=== PATIENT | female | born 1980 | race Two or more races ===

== ENCOUNTER 2022-09-29 13:05 | Emergency (ER) | payer OTHER, SELFPAY ==
[2022-09-29 14:21] VITALS: BP 132/97; PULSE 89; RESP 20; TEMP 36.4; O2SAT 98; BMI 34.1
--- NOTE | 2022-09-29 14:21 | ED_ITS ---
HPI - URI/Sore Throat General Chief Complaint: Upper Respiratory Symptoms Stated Complaint: covid + 3 days ago, SOB Time Seen by Provider: 09/29/22 14:31 Source: patient Mode of arrival: ambulatory Limitations: no limitations History of Present Illness HPI Narrative: Patient is a 42-year-old female who presents to emergency department complaining of cough, shortness of breath, chest pain, body aches, fatigue, headache, symptom onset 3 days ago. Reports her son was ill recentlywith similar symptoms. Today she took at home COVID-19 test today which was positive. Denies any reported past medical history. States she has been vaccinated for COVID-19. OTC cold medications not helping her symptoms Related Data Previous Rx's Medication Instructions Recorded nirmatrelvir 300 mg (150 mg See Rx Instructions PO .COMPLEX 09/29/22 x2)-ritonavir 100 mg tablet,dose #30 ea pack(EUA) (Paxlovid) Allergies Allergy/AdvReac Type Severity Reaction Status Date / Time oxycodone [OXYCODONE] Allergy Mild HIVES Unverified 06/10/20 16:36 Review of Systems Review of Systems: Constitutional: no fever. no chills. No weakness. Positive fatigue. positive body aches ENT/ Mouth: No Ear Pain, positive Nasal Congestion, no sore throat, No Rhinorrhea, No Swallowing Difficulty Skin: No rash or itching. Cardiovascular: positive chest pain. No palpitations. Respiratory: positive shortness of breath. Positive cough. No sputum production. Gastrointestinal: No nausea. No vomiting. No diarrhea. No abdominal pain. Genitourinary: No burning micturition. No urinary frequency. Neurologic: positive headache. No dizziness. No syncope. No numbness or tingling in the extremities. Musculoskeletal: No back pain. No joint pain or stiffness. Yes all other systems are reviewed and are negative PMFSH Past Medical History Attestation statement: The following information was validated with the patient. Source: old records reviewed Social History Social History Advance Directives: Yes Advance Directives Information Provided: Yes Advance Directives on File: No Physical Exam Vital Signs: Vital Signs: Last Vital Signs Temp 97.6 F 09/29/22 14:21 Pulse 89 09/29/22 14:21 Resp 20 09/29/22 14:21 BP 132/97 H 09/29/22 14:21 Pulse Ox 98 09/29/22 14:21 O2 Del Method 09/29/22 14:21 BMI result Body Mass Index 34.1 Appearance: Alert.?Oriented to person, place and time. No acute distress.?Normal affect. Eyes: Pupils equal, round and reactive to light.? ENT: TM normal bilaterally. Pharynx normal.?? Neck: Normal inspection.? Neck supple.??No cervical adenopathy CVS: Heart sounds normal. Normal heart rate and rhythm.? Pulses normal.?? Respiratory: No respiratory distress.? Lung sounds clear to auscultation bilaterally?? Abdomen: Soft and non-tender. Normoactive bowel sounds. Skin: Skin warm and dry.? Normal skin color.? ? Extremities: No lower extremity edema.? Neuro: Moves all extremities spontaneously. Sensation intact bilaterally. No motor deficits. Ambulates with normal steady gait. Medical Decision Making Medical Decision Making MDM Narrative: Patient is a 42 year old female with no past medical history, presenting for evaluation of upper respiratory symptoms. COVID-19 testing positive at home today. At this time history and physical exam not consistent with ACS/PE/pneumonia. PERC negative. chest pain reproducible t cough and deep inspiration, suggesting inflammatory costocondritis. No meningismus. Well- appearing, nontoxic, afebrile, no tachycardia or tachypnea/hypoxia. Speaking clear full sentences, ambulatory with steady gait. Reviewed Paxlovid emergency use authorization, side effects, potential complications, provided with patient information handout, and she would like treatment with Paxlovid, therefore prescription was sent to her pharmacy. Discussed conservative treatment including rest, hydration, Tylenol/ibuprofen as needed for fever and body aches, saline nasal spray, humidifier, [id number] cold medication. Advised to follow-up with primary care provider as needed, discussed reasons to return back to the emergency department. All questions were answered. Patient discharged home in stable condition. Provided with a return to work note. Tests considered The following testing was considered but not selected: chest x-ray considered, H&P not consistent with pneumona, chest XR Deferred Prescription Management I considered prescription management with: Antiviral Discharge Plan Discharge Clinical Impression: COVID-19 Patient Disposition: Home, Self-Care Instructions: COVID-19 (Coronavirus Disease 2019) (ED) Additional Instructions: We discussed potential side effects and complications from Paxlovid, you accepted treatment, and prescription was sent to the pharmacy. Be sure to rest, stay well hydrated drinking plenty of fluids, eat small frequent meals. Tylenol/ibuprofen can be used as needed for fever/pain. [id number] cold medications may be helpful as well for symptoms. Saline nasal spray, humidifier may be helpful for nasal congestion. You may return to the emergency department with any new or worsening symptoms or concerns. Follow-up with your primary care provider as needed. Soonest end isolation date is 10/02/2021, given that your symptoms are improving and you are without a fever for 24 hours. You should continue to wear mask for 5 days after this. Prescriptions: New Paxlovid (EUA) 300 mg (150 mg x 2)-100 mg tablets,dose pack See Rx Instructions .ROUTE .COMPLEX Qty: 30 0RF Rx Instructions: take TWO 150 mg tablets of nirmatrelvir with ONE 100 mg tablet of ritonavir twice daily for 5 days Referrals: Physician,Unknown J [Primary Care Provider] - Interventions: ED Discharge Assessment Last Done: 09/29/22 14:56 Discharge Date/Time: 09/29/22 14:56
== END 2022-09-29 14:56 | disposition home or self-care (01) ==
PROVIDERS: Emergency Provider Emergency Medicine
DX: U07.1 COVID-19 (principal)
CPT/HCPCS: 99282; 99283

== ENCOUNTER 2024-04-24 23:10 | Day surgery (SDC) | payer OTHER, SELFPAY ==
--- NOTE | ~2024-04-24 | CT_ITS ---
EXAMINATION: CT ABDOMEN AND PELVIS WITHOUT CONTRAST CLINICAL INFORMATION: Right flank pain COMPARISON: None available. TECHNIQUE: Multidetector volumetric imaging was performed from the superior aspect of the liver through the pubic symphysis. Sagittal and coronal reformatted images were obtained on the technologist's workstation. This CT examination was performed using dose optimization techniques as appropriate, variously including the following: *Automated exposure control *Adjustment of mA and/or kV according to patient size (this includes techniques or standardized protocols for targeted exams where dose is matched to indication/reason for exam; i.e. extremities or head) *Use of iterative reconstruction technique DLP: 884 mGy-cm FINDINGS: LUNG BASES: The visualized lung bases are unremarkable. LIVER, GALLBLADDER, AND BILIARY TREE: The liver is normal in size, shape, and attenuation. No focal hepatic lesion or biliary ductal dilatation is identified on this noncontrast exam. Cholelithiasis is noted. Gallbladder appears somewhat contracted, with limited evaluation for possible wall thickening. PANCREAS: No convincing peripancreatic inflammation, with suboptimal assessment due to artifact. SPLEEN: Unremarkable. ADRENAL GLANDS: Unremarkable. KIDNEYS AND URETERS: No hydronephrosis or obstructing calculus bilaterally. Suspected left renal sinus cyst; no follow-up recommended. BLADDER: Mildly distended and grossly unremarkable. GASTROINTESTINAL TRACT: No evidence of bowel obstruction or significant wall thickening. The appendix is unremarkable. No free fluid or free air is seen. ABDOMINAL WALL: No significant hernia is appreciated. LYMPH NODES: Normal. VASCULAR: Unremarkable. PELVIC VISCERA: Left adnexal cyst measures up to 2.9 cm. Findings are overwhelmingly likely to represent a normal ovarian follicle. No followup imaging recommended. IUD is present in the uterus. OSSEOUS STRUCTURES: Scattered degenerative changes in the spine. CT/CT abdomen pelvis wo IV con IMPRESSION: 1. No hydronephrosis or obstructing calculus. 2. Cholelithiasis. Gallbladder appears somewhat contracted, with limited evaluation for possible wall thickening. If there is clinical concern for cholecystitis, this would be better assessed with ultrasound.
--- NOTE | ~2024-04-24 | US_ITS ---
EXAMINATION: US ABDOMEN LIMITED CLINICAL INFORMATION: Right upper quadrant pain. COMPARISON: CT from the same day TECHNIQUE: Real-time imaging of the gallbladder and common bile duct. FINDINGS: GALLBLADDER: Gallbladder is physiologically distended. Shadowing gallstone is identified measuring 4.1 x 2.1 x 2.6 cm. Gallbladder wall thickness is at the upper limits of normal. Right upper quadrant tenderness was reported during the exam. COMMON BILE DUCT: Normal in caliber measuring 0.4 cm in diameter. US/US abdomen limited IMPRESSION: Cholelithiasis, without additional specific findings of cholecystitis, though right upper quadrant tenderness was reported during the exam. If warranted, evaluation with nuclear medicine hepatobiliary scan may be performed if there remains clinical concern for cholecystitis.
[2024-04-24 23:42] VITALS: BP 135/86; PULSE 103; RESP 18; TEMP 36.9; O2SAT 96; BMI 39.8
[2024-04-25] VITALS (18 sets, daily range): BP systolic 114–155; BP diastolic 68–89; PULSE 53–96; RESP 15–20; TEMP 36.1–36.7; O2SAT 91–99
[2024-04-25 00:01] LABS: MANUAL DIFF FLAG NO
[2024-04-25 00:03] LABS: Basophils Percent Auto 0.3 % (0-2); Eosinophils Absolute Auto 0.1 X10*3/uL (0.0-0.4); Eosinophils Percent Auto 0.5 % (0-4); Hematocrit 39.2 % (37.0-47.0); Hemoglobin 12.6 g/dl (12.0-16.0); Imm Gran Abs Auto 0.06 X10*3/uL (0.00-0.03); Imm Gran Pct Auto 0.5 % (0.0-0.4); Lymphocytes Absolute Auto 3.7 X10*3/uL (1.2-4.9); Lymphocytes Percent Auto 31.8 % (20-40); Mean Corpuscular HGB Conc 32.1 g/dl (31.0-35.0); Mean Corpuscular Hemoglobin 23.1 pg (27.0-33.0); Mean Corpuscular Volume 71.9 fL (80.0-98.0); Mean Platelet Volume 8.9 fL (9.4-12.3); Monocytes Absolute Auto 0.9 X10*3/uL (0.1-1.2); Monocytes Percent Auto 7.6 % (2-11); Neutrophils Absolute Auto 6.9 x10*3/uL (2.0-8.3); Neutrophils Percent Auto 59.3 % (45-73); Platelet Count 277 X10*3/uL (160-400); Red Blood Count 5.45 X10*6/uL (4.20-5.50); Red Cell Distribution Width 14.7 % (11.0-16.0); White Blood Count 11.7 X10*3/uL (4.8-10.8)
[2024-04-25 00:04] LABS: Appearance Urine Cloudy; Color Urine Dark Yellow; Glucose Urine UA Negative (Negative); Leukocyte Esterase Urine Moderate (2+) (Negative); Nitrite Urine Negative (Negative); PH 5.5 (5.0-9.0); Specific Gravity - Urine >= 1.030 (1.005-1.025); UMIC TRIGGER UACC YES; Urine Blood Moderate (2+) (Negative); Urine Ketones Trace mg/dL (Negative); Urine Protein 30 (1+) mg/dL (Neg-Trace)
[2024-04-25 00:06] LABS: UPreg QC Valid YES; Urine Pregnancy NEGATIVE (NEGATIVE)
--- NOTE | 2024-04-25 00:08 | ED.FEMALEGU ---
HPI - Female Genitourinary General Chief complaint: Urogenital-Female Stated complaint: nausea, sharp pain, UTI Time Seen by Provider: 04/25/24 00:06 Source: patient Mode of arrival: ambulatory Limitations: no limitations History of Present Illness ED Provider: REGIS TRUJILLO Narrative: 43 yo female with PMH of asthma, migraines, kidney stones here with c/o R flank pain urgency and dysuria x 1 week tried pyridium with some relief but then symptoms became very severe today. She has been trying to manage at home due to significant life stressors. She has no fevers. Feels nauseated. Has been using the bathroom so much that she barely makes it there. She has pain to the R flank and R groin at this point. MD elicited complaint: dysuria and other (flank pain) Pertinent past history: other (kidney stones) Onset (ago): week(s) (1) Location of symptoms: flank Severity: severe Quality of pain: sharp Consistency: intermittent Vaginal discharge: none Vaginal bleeding: none Urinary symptoms: Dysuria, Urgency, Frequency, Difficulty Urinating and Flank Pain Exacerbating factors: urination Relieving factors: none Treatment prior to arrival: OTC urinary analgesics Related Data Previous Rx's ?Medication ?Instructions ?Recorded nirmatrelvir 300 mg (150 mg See Rx Instructions PO .COMPLEX 09/29/22 x2)-ritonavir 100 mg tablet,dose #30 ea pack (Paxlovid) Allergies Allergy/AdvReac Type Severity Reaction Status Date / Time oxycodone [OXYCODONE] Allergy Mild HIVES Verified 04/24/24 23:44 Review of Systems Review of Systems: Constitutional : No Fever, No Chills ENT/Mouth : No sore throat Eyes: No Eye Pain, No Swelling, No Redness Cardiovascular : No Chest Pain, No SOB Respiratory : No Cough, No Sputum, No Wheezing Gastrointestinal : positive Nausea, no Vomiting, No Diarrhea, positive abdominal pain Genitourinary : positive Dysuria, positive urinary frequency, no Hematuria, positive Flank Pain, positive hesitancy Musculoskeletal : No joint pain, No Myalgias Skin : No Skin Lesions, No rash Neuro : No Weakness, No Numbness, No Headache Psych : No Anxiety/Panic, No Depression Heme/Lymph: No Bruising, No Lymphadenopathy Endocrine : No Polyuria, No Polydipsia All other systems reviewed and are negative [facility] Past Medical History Attestation statement: The following information was validated with the patient. Source: old records reviewed Medical History Kidney stone Social History Social History (Updated 04/25/24 @ 00:36 by Gema Bustillo DO) Patient Tobacco Use Status: Tobacco use Unknown Smoked in Last 30 Days: No Use of substances other than those prescribed or required for medical reasons: No Advance Directives: No Advance Directives Information Provided: Yes Do you have a plan to hurt others: No Plan Patient : No Physical Exam Vital Signs: Vital Signs: Last Vital Signs Temp 98.5 F 04/24/24 23:42 Pulse 103 H 04/24/24 23:42 Resp 18 04/24/24 23:42 BP 135/86 04/24/24 23:42 Pulse Ox 96 04/24/24 23:42 O2 Del Method Room Air 04/24/24 23:42 BMI result Body Mass Index 39.8 Appearance: Alert. Oriented X3. No acute distress. Eyes: Pupils equal, round and reactive to light. ENT: Pharynx normal. Neck: Normal inspection. Neck supple. CVS: Normal heart rate and rhythm. Pulses normal. Respiratory: No respiratory distress. Breath sounds normal. Abdomen: Soft and mild R sided CVA ttp no rebound or guarding , has moderate RUQ pain and + clarke's sign Skin: Skin warm and dry. Normal skin color. Normal skin turgor. Extremities: No lower extremity edema. No calf ttp Neuro: Oriented X 3. No motor deficit. No sensory deficit. Medications Administered Discontinued Medications Generic Name Dose Route Start Last Admin Trade Name Fior PRN Reason Stop Dose Admin Sodium Chloride 1,000 mls @ 999 mls/hr 04/25/24 00:16 04/25/24 01:53 Ns IV 04/25/24 01:16 Infused .Q1H1M ONE Infusion Ketorolac Tromethamine 15 mg 04/25/24 00:16 04/25/24 00:34 Ketorolac Tromethamine 15 Mg/Ml Vial IVPUSH 04/25/24 00:17 15 mg ONCE ONE Administration Lorazepam 1 mg 04/25/24 03:01 04/25/24 03:33 Lorazepam 2 Mg/Ml Vial IVPUSH 04/25/24 03:02 1 mg STAT STA Administration Ondansetron HCl 4 mg 04/25/24 00:16 04/25/24 00:34 Ondansetron Hcl 4 Mg/2 Ml Vial IVPUSH 04/25/24 00:17 4 mg ONCE ONE Administration Medical Decision Making Medical Decision Making [facility] Narrative: 43 yo female with PMH of asthma, migraines, kidney stones here with c/o R flank pain/R side pain and dysuria at this time will need basic labs, UA, CT scan for renal colic, IVF zofran, toradol for pain. Could be renal colic, colitis, UTI, gallbladder disease Differential Diagnosis Differential Diagnoses: The differential diagnosis associated with the presentation includes renal colic, colitis, UTI, gallbladder Admission/Observation Consideration of admission/observation: Escalation of care including admission/observation considered start on ceftriaxone and refer to surgery - [place] notified 6am Consult Healthcare Provider Management of the patient was discussed with: Sandwich Artist (Dr. Bird aware) Lab Data [facility] Lab Attestation statement: I reviewed the patient's lab results. 04/24/24 23:55 04/24/24 23:55 Labs: Lab Results 04/24/24 Range/Units 23:55 WBC 11.7 H (4.8-10.8) X10*3/uL RBC 5.45 (4.20-5.50) X10*6/uL Hgb 12.6 (12.0-16.0) g/dl Hct 39.2 (37.0-47.0) % MCV 71.9 L (80.0-98.0) fL MCH 23.1 L (27.0-33.0) pg MCHC 32.1 (31.0-35.0) g/dl RDW 14.7 (11.0-16.0) % Plt Count 277 (160-400) X10*3/uL MPV 8.9 L (9.4-12.3) fL Immature Gran % (Auto) 0.5 H (0.0-0.4) % Neut % (Auto) 59.3 (45-73) % Lymph % (Auto) 31.8 (20-40) % [place] % (Auto) 7.6 (2-11) % Eos % (Auto) 0.5 (0-4) % Baso % (Auto) 0.3 (0-2) % Lymph # (Auto) 3.7 (1.2-4.9) X10*3/uL [place] # (Auto) 0.9 (0.1-1.2) X10*3/uL Eos # (Auto) 0.1 (0.0-0.4) X10*3/uL Baso # (Auto) 0.0 (0.0-0.2) X10*3/uL Abs Immat Gran (auto) 0.06 H (0.00-0.03) X10*3/uL Absolute Neuts (auto) 6.9 (2.0-8.3) x10*3/uL Absolute Nucleated RBC 0.000 (0.0-0.012) X10*3/uL Nucleated RBC % (auto) 0.0 (0.0-0.2) /100WBC Sodium 141 (135-145) mmol/L Potassium 3.8 (3.3-5.1) mmol/L Chloride 110 H (96-108) mmol/L Carbon Dioxide 22 (22-29) mmol/L Anion Gap 13 (12-20) BUN 16 (9-16) mg/dL Creatinine 0.82 (0.5-1.4) mg/dL Estim Creat Clear Calc 117.4 Estimated GFR > 60 Random Glucose 120 H (60-115) mg/dL Calcium 9.4 (8.4-10.2) mg/dL Total Bilirubin 0.2 (0.0-1.0) mg/dL AST 14 (5-31) U/L ALT 16 (0-31) U/L Alkaline Phosphatase 68 (39-117) U/L Total Protein 7.7 (6.5-8.0) g/dL Albumin 4.0 (3.5-5.0) g/dL Urine Color Dark Yellow Urine Appearance Cloudy Urine pH 5.5 (5.0-9.0) Ur Specific [place] >= 1.030 H (1.005-1.025) Urine Protein 30 (1+) H (Neg-Trace) mg/dL Urine Glucose (UA) Negative (Negative) mg/dL Urine Ketones Trace (Negative) mg/dL Urine Blood Moderate (2+) H (Negative) Urine Nitrite Negative (Negative) Ur Leukocyte Esterase Moderate (2+) H (Negative) Urine RBC 6-10 H (0-2) /HPF Urine WBC 6-10 (0-5) /HPF Ur Squamous Epith Cells 6-10 (0-2) /HPF Urine Bacteria Trace (None Seen) Hyaline Casts 6-10 (0-2) /LPF Urine Test NEGATIVE (NEGATIVE) Independent Interpretation I performed an independent interpretation of an: CT Scan Radiology Impression Discussion of test interpretation with radiology: I have reviewed the radiologist's reading. Independent Historian Clinical information obtained from an independent historian. History obtained from or confirmed by: Other External Record Review External record reviewed: Office record Prescription Management I considered prescription management with: Pain Medication, Antibiotic and Other Discharge Plan Discharge Clinical Impression: Biliary colic Patient Disposition: Admitted As Inpatient Print Language: Japanese
[2024-04-25 00:15] LABS: Bacteria Urine Trace (None Seen); UACC Culture Trigger YES
[2024-04-25 00:21] LABS: Alanine Aminotransferase 16 U/L (0-31); Alkaline Phosphatase 68 U/L (39-117); Anion Gap 13 (12-20); Aspartate Amino Transferase 14 U/L (5-31); Bilirubin Total 0.2 mg/dL (0.0-1.0); Blood Urea Nitrogen 16 mg/dL (9-16); Calcium 9.4 mg/dL (8.4-10.2); Carbon Dioxide 22 mmol/L (22-29); Chloride 110 mmol/L (96-108); Creatinine Clr Calc Pharmacy 117.4; Estimated Glomerular Filt Rate > 60; Glucose Random 120 mg/dL (60-115); Potassium 3.8 mmol/L (3.3-5.1); Sodium 141 mmol/L (135-145); Total Protein 7.7 g/dL (6.5-8.0)
[2024-04-25] MEDS: 0.9 % Sodium Chloride 1,000 ML 999 ML IV (00:34)
[2024-04-25] MEDS: Ketorolac Tromethamine 15 MG/ML VIAL IVPUSH (00:34)
[2024-04-25] MEDS: ondansetron HCL 4 MG/2 ML VIAL IVPUSH (00:34)
[2024-04-25] MEDS: LORazepam 2 MG/ML VIAL 1 MG IVPUSH (03:33)
[2024-04-25] MEDS: cefTRIAXone sodium 1 GM in 0.9 % Sodium Chloride 50 ML IV (06:33)
[2024-04-25] MEDS: 0.9 % Sodium Chloride 1,000 ML 100 ML IVCONT (06:34)
--- NOTE | 2024-04-25 07:19 | P.HPGS_ITS ---
History of Present Illness History of Present Illness Date of Service: 04/25/24 Chief complaint: nausea, sharp pain, UTI Narrative: Ashley Marroquin is a 43 year old female who presents with a proximally 1 week history of right upper quadrant pain radiating around to her back. Because of progressive symptoms, patient finally presented to emergency department for further evaluation. Workup including sonogram were consistent with acute cholecystitis. Patient has had history of kidney stones initially thought her symptoms were a recurrence of this. Patient otherwise tolerating a diet, has regular bowel habits, never been jaundiced before. She has never had such symptoms before. No unusual diet, no sick contacts, no recent foreign travel. Chart was reviewed and patient evaluated PMFSH Past Medical History Medical History Kidney stone Social History Social History (Updated 04/25/24 @ 00:36 by Gema Bustillo DO) Patient Tobacco Use Status: Tobacco use Unknown Smoked in Last 30 Days: No Use of substances other than those prescribed or required for medical reasons: No Advance Directives: No Advance Directives Information Provided: Yes Do you have a plan to hurt others: No Plan Patient : No Meds Allergies Allergy/AdvReac Type Severity Reaction Status Date / Time oxycodone [OXYCODONE] Allergy Mild HIVES Verified 04/24/24 23:44 Active Medications: Current Medications Sodium Chloride (Ns) 1,000 mls @ 100 mls/hr IVCONT .Q10H OC Last Admin: 04/25/24 06:34 Dose: 100 mls/hr Physical Exam Vital Signs: Vital Signs: Last Vital Signs Temp 97.4 F 04/25/24 04:00 Pulse 68 04/25/24 04:00 Resp 16 04/25/24 04:00 BP 119/71 04/25/24 04:00 Pulse Ox 96 04/25/24 04:00 O2 Del Method Room Air 04/25/24 04:00 BMI result Body Mass Index 39.8 Eyes: Other: Anicteric Chest: Other: Chest breath sounds bilaterally, HS 1 in 2 GI: Other: Very corpulent abdomen. Marked right upper quadrant tenderness and positive Plaza sign Results Results Labs: Short CBC 04/24/24 Range/Units 23:55 WBC 11.7 H (4.8-10.8) X10*3/uL Hgb 12.6 (12.0-16.0) g/dl Hct 39.2 (37.0-47.0) % Plt Count 277 (160-400) X10*3/uL BMP 04/24/24 23:55 Sodium 141 Potassium 3.8 Chloride 110 H Carbon Dioxide 22 BUN 16 Creatinine 0.82 Calcium 9.4 Liver Function 04/24/24 Range/Units 23:55 Total Bilirubin 0.2 (0.0-1.0) mg/dL AST 14 (5-31) U/L ALT 16 (0-31) U/L Alkaline Phosphatase 68 (39-117) U/L Albumin 4.0 (3.5-5.0) g/dL Urine 04/24/24 Range/Units 23:55 Urine Color Dark Yellow Urine Appearance Cloudy Urine pH 5.5 (5.0-9.0) Ur Specific [place] >= 1.030 H (1.005-1.025) Urine Protein 30 (1+) H (Neg-Trace) mg/dL Urine Glucose (UA) Negative (Negative) mg/dL Urine Test NEGATIVE (NEGATIVE) Assessment and Plan (1) Acute cholecystitis: Status: Acute Plan Risks, benefits, alternatives laparoscopic possible open cholecystectomy reviewed the patient and included but not limited to bleeding, infection, numbness, pain, scarring, bowel or bile duct injury or leak and the patient wishes to proceed. All questions answered. Arrangements were made for this as an add on case for today. Quality Stroke Does the patient have a stroke diagnosis?: No VTE Prior VTE?: No VTE Risk Level:: Surgical - low VTE Device Contraindication: N/A - Device Ordered VTE Drug Contraindication: Treatment Not Indicated Procedures Date of Service Date of Service: 04/25/24
--- NOTE | 2024-04-25 08:58 | PHA.MEDREC ---
Addendum entered by Kenia Arguelles [facility] 04/25/24 09:16: reviewed Original Note: Pharmacy Consult ? Medication Reconciliation Pharmacy has completed the medication reconciliation. Spoke to Patient to confirm med list. Patient states she takes Sumatriptan succ 25 mg 1 tab prn for migraines, however she hasn't filled medication since 07-16-23. when sake when the last time she took it she said I haven't taking it in a few months because i was waiting to speak to the DR. So, I left off med rec. Patient also states she uses Ventolin HFA 1to 2 puffs daily prn, however there is no claim on file.
--- NOTE | 2024-04-25 11:38 | MHC.EDTECH ---
patient's son Sav Marroquin leaves phone number [phone]
--- NOTE | 2024-04-25 12:05 | PC.NURSE ---
assessed iv upon arrival 20g to right ac. asymptomatic.
--- NOTE | 2024-04-25 12:53 | HO.ANESPROP2 ---
HPI - Anesthesia Eval Consult details Narrative: for henrry kenneth PMFSH Active Problems Active Problems: All Active Problems Acute cholecystitis (Acute) Biliary colic (Acute) COVID-19 (Acute) Past Medical History Medical History Asthma Sleep apnea Ovarian cyst Kidney stone Family History Family history of problems with anesthesia: No Surgical History Surgical History H/O lumpectomy Previous section History of Problems with Anesthesia: No Social History Social History Patient Tobacco Use Status: Current everyday Tobacco user Tobacco use type: Cigarette Cigarettes Per Day: 4 Smoked in Last 30 Days: No Use of substances other than those prescribed or required for medical reasons: Yes Substance Use Type Other:: marijuana gummies Are you DNR?: No Advance Directives: No Advance Directives Information Provided: Yes Do you have a plan to hurt others: No Plan Patient : No Meds Allergies Allergy/AdvReac Type Severity Reaction Status Date / Time oxycodone [OXYCODONE] Allergy Mild HIVES Verified 04/25/24 11:45 Active Medications: Current Medications Sodium Chloride (Ns) 1,000 mls @ 100 mls/hr IVCONT .Q10H OC Last Admin: 04/25/24 06:34 Dose: 100 mls/hr Home Medications ?Medication ?Instructions ?Recorded ?Confirmed ?Last Taken ?Type albuterol sulfate 90 mcg/actuation 1 - 2 inh inhalation QID PRN 04/25/24 04/25/24 Unknown History aerosol inhaler (Ventolin HFA) Shortness Of Breath Or Wheezing fluticasone propionate 50 1 spray intranasal BID 04/25/24 04/25/24 04/24/24 History mcg/actuation nasal spray,suspension ibuprofen 600 mg tablet 600 mg PO BID PRN Pain 04/25/24 04/25/24 Unknown History loratadine 10 mg tablet (Claritin) 10 mg PO DAILY 04/25/24 04/25/24 04/24/24 History multivitamin 1 tab PO DAILY 04/25/24 04/25/24 04/24/24 History Exam Height,Weight and Vital Signs: Height 5 ft 8 in Weight 118.841 kg Last Vital Signs Temp 98.1 F 04/25/24 11:56 Pulse 66 04/25/24 11:56 Resp 16 04/25/24 11:56 BP 128/76 04/25/24 11:56 Pulse Ox 98 04/25/24 11:56 O2 Del Method Room Air 04/25/24 11:56 Pertinent Lab Results Pertinent Lab Results: Laboratory Tests 04/24/24 23:55 WBC 11.7 H RBC 5.45 Hgb 12.6 Hct 39.2 MCV 71.9 L MCH 23.1 L MCHC 32.1 RDW 14.7 Plt Count 277 MPV 8.9 L Immature Gran % (Auto) 0.5 H Neut % (Auto) 59.3 Lymph % (Auto) 31.8 [place] % (Auto) 7.6 Eos % (Auto) 0.5 Baso % (Auto) 0.3 Lymph # (Auto) 3.7 [place] # (Auto) 0.9 Eos # (Auto) 0.1 Baso # (Auto) 0.0 Abs Immat Gran (auto) 0.06 H Absolute Neuts (auto) 6.9 Absolute Nucleated RBC 0.000 Nucleated RBC % (auto) 0.0 Sodium 141 Potassium 3.8 Chloride 110 H Carbon Dioxide 22 Anion Gap 13 BUN 16 Creatinine 0.82 Estim Creat Clear Calc 117.4 Estimated GFR > 60 Random Glucose 120 H Calcium 9.4 Total Bilirubin 0.2 AST 14 ALT 16 Alkaline Phosphatase 68 Total Protein 7.7 Albumin 4.0 Urine Color Dark Yellow Urine Appearance Cloudy Urine pH 5.5 Ur Specific [place] >= 1.030 H Urine Protein 30 (1+) H Urine Glucose (UA) Negative Urine Ketones Trace Urine Blood Moderate (2+) H Urine Nitrite Negative Ur Leukocyte Esterase Moderate (2+) H Urine RBC 6-10 H Urine WBC 6-10 Ur Squamous Epith Cells 6-10 Urine Bacteria Trace Hyaline Casts 6-10 Urine Test NEGATIVE Airway Mallampati Class: II TM Dist: >3cm Neck ROM: Full Heart: rrr Lungs: cta Assessment and Plan Assessment Anesthesia Assessment: Anesthesia Plan Discussed Final Anesthetic Review Family History of Problems with Anesthesia: No History of Problems with Anesthesia: No NPO: Yes ASA Class: II Final Preanesthetic Review: No Changes in Pt Med Stat, Meds/Allgs Chart Reviewed, Consent Obtained/Reviewed and Anes Risks/Benef Reviewed Patient Risk: Low Procedure Risk: Intermediate Anesthetic Plan Anesthetic Plan: GA Disposition: Standard PACU
--- NOTE | 2024-04-25 14:12 | P.OP_ITS ---
Operative Note Operative Note Date of Service: 04/25/24 Narrative: Preoperative diagnosis: [] Symptomatic gallbladder/acute cholecystitis Postop diagnosis: [] The same Procedure [] laparoscopic cholecystectomy Surgeon: [] Pelon [employer] Trailers: [] Dariel Type of Anesthesia: [] General Indication for surgery: [] Inflamed Gallbladder with omental adhesions to it. Very large gallbladder stone impacted in the cystic duct/Izabel's pouch junction. Moderately intrahepatic gallbladder. Markedly corpulent abdomen Findings: [] Patient brought to the operating room, placed on operative table supine position, after an adequate level of general anesthesia was induced, the patient's abdomen was prepped and draped in usual sterile fashion. Using a supraumbilical curvilinear incision, Chester technique was used to insufflate abdominal cavity to 15 mm of CO2. Upper midline and right subcostal ports were placed under direct laparoscopic view, and the patient placed in reverse Trendelenburg position, and tilted to the left. Findings were as noted above. Gallbladder was grasped using laparoscopic graspers and retracted superiorly and laterally. Soft omental adhesions were swept off the gallbladder with the hilum was approached. Cystic artery and cystic duct were each identified, circumferentially skeletonized, traced directly into the gallbladder, and critical view obtained. Each was clipped proximally x2, distally x1, and transected gallbladder which was moderately intrahepatic was then cauterized from the gallbladder fossa using Bovie. Specimen placed in an Endo-Catch bag, a retrieved through the umbilical port. Abdominal cavity was copiously irrigated and secured hemostasis. All ports removed under direct laparoscopic view. Wounds were closed in the following manner; umbilical wound is fascia reapproximated using interrupted 0 Vicryl sutures. Skin wounds were closed using subcuticular 4-0 Vicryl sutures followed by Steri-Strips and sterile dressings. Wounds were infiltrated 0.5% Marcaine at completion. Sponge, needle, and instrument counts reported correct. Patient tolerated the procedure well and emerged from anesthesia stable condition. EBL minimal
[2024-04-25] MEDS: fentaNYL citrate/PF 100 MCG/2 ML VIAL 25 MCG IVPUSH ×6 (14:35→15:10)
== END 2024-04-25 16:08 | disposition home or self-care (01) ==
LOC: HO.ED 04-25 14:22 → HO.SSS 04-25 14:27
PROVIDERS: Emergency Provider Emergency Medicine; Visit Provider Surgery
PROC: 0FT44ZZ Resection of Gallbladder, Percutaneous Endoscopic Approach (ICD-10-PCS; CPT 47562; principal; 2024-04-25 13:40)
DX: K80.12 Calculus of gallbladder with acute and chronic cholecystitis without obstruction (principal); K31.A0 Gastric intestinal metaplasia, unspecified; J45.909 Unspecified asthma, uncomplicated; G47.30 Sleep apnea, unspecified; Z99.89 Dependence on other enabling machines and devices; Z87.442 Personal history of urinary calculi; F17.210 Nicotine dependence, cigarettes, uncomplicated; Z79.899 Other long term (current) drug therapy
CPT/HCPCS: 47562; 36415; 74176; 76705; 80053; 81001; 81025; 85025; 87086; 88304; 96361; 96374; 96375; 99285; J0690; J0696; J1100; J1885; J2060; J2250; J2405; J2704; J2795; J3010

== ENCOUNTER → 2024-04-24 23:55 | Outpatient (BNV) | payer OTHER, SELFPAY | PROVIDERS: Emergency Provider Emergency Medicine; Visit Provider Surgery | DX: K81.0 Acute cholecystitis (principal) | CPT/HCPCS: 47562; 99284 ==

== ENCOUNTER 2024-04-28 09:00 | Emergency (ER) | payer OTHER, SELFPAY ==
--- NOTE | ~2024-04-28 | XR_ITS ---
EXAMINATION: XR CHEST CLINICAL INFORMATION: Dyspnea. COMPARISON: None available. TECHNIQUE: Frontal view of the chest was obtained. FINDINGS: Lung volumes are low. There is no gross pneumothorax. Heart size is normal. Left basilar patchy opacities likely represent subsegmental atelectasis, although an infectious/inflammatory process should also be considered in the appropriate clinical setting. No pleural effusion. XR/XR chest 1V IMPRESSION: Left basilar patchy opacities likely represent subsegmental atelectasis, although an infectious/inflammatory process should also be considered in the appropriate clinical setting. This study was presented today April 28, 2024 for interpretation. Stat results provided at this time as requested by referring provider.
--- NOTE | ~2024-04-28 | CT_ITS ---
EXAMINATION: CT ABDOMEN AND PELVIS WITH CONTRAST CLINICAL INFORMATION: Post cholecystectomy with right upper quadrant pain COMPARISON: CT abdomen and pelvis 04/25/2024 TECHNIQUE: Multidetector volumetric images were obtained from the superior aspect of the liver through the pubic symphysis following administration 85 mL of Omnipaque 350 intravenous contrast. Sagittal and coronal reformatted images were obtained on the technologist's workstation. Oral contrast: No This CT examination was performed using dose optimization techniques as appropriate, variously including the following: *Automated exposure control *Adjustment of mA and/or kV according to patient size (this includes techniques or standardized protocols for targeted exams where dose is matched to indication/reason for exam; i.e. extremities or head) *Use of iterative reconstruction technique DLP: 934 mGy-cm FINDINGS: LUNG BASES: There is new bibasilar atelectasis, left greater than right since the preop study. LIVER, GALLBLADDER, AND BILIARY TREE: The liver is normal in size, shape, and attenuation. No focal hepatic lesion or biliary ductal dilatation is present. Interval cholecystectomy with clips in the gallbladder fossa. No postop fluid collection and or free intraperitoneal air seen. PANCREAS: Unremarkable. SPLEEN: Unremarkable. ADRENAL GLANDS: Unremarkable. KIDNEYS AND URETERS: The kidneys are normal in size, shape, and attenuation. No hydronephrosis, hydroureter, or calculi seen. Multiple benign left-sided parapelvic Bosniak class I renal cysts are noted which require no additional imaging or follow-up. No solid renal masses are seen. No perinephric stranding. BLADDER: Unremarkable. GASTROINTESTINAL TRACT: Some minimal inflammatory change seen adjacent to the proximal descending colon likely secondary to recent surgery. Few scattered colonic diverticula present without diverticulitis. The small and large bowel are otherwise unremarkable. The appendix is unremarkable. ABDOMINAL WALL: Postoperative changes in the abdominal wall with some stranding in the tiny amount of air. No significant hernia is appreciated. LYMPH NODES: Normal. VASCULAR: Unremarkable. PELVIC VISCERA: An anteverted uterus with an IUD appears normal. There is a 3 cm benign appearing left ovarian cyst. OSSEOUS STRUCTURES: Unremarkable. CT/CT abdomen pelvis w IV con IMPRESSION: 1. A cause for the patient's right upper quadrant pain has not been found. 2. Interval cholecystectomy with no postop fluid collection or free intraperitoneal air. 3. Incidental note made of bibasilar atelectasis, benign left ovarian cyst, colonic diverticulosis without diverticulitis and other findings described above. Fleischner guidelines were followed.
--- NOTE | ~2024-04-28 | US_ITS ---
EXAMINATION: US VENOUS ULTRASOUND WITH DOPPLER LOWER EXTREMITY, BILATERAL CLINICAL INFORMATION: Pain and swelling bilateral lower extremities. COMPARISON: None available. TECHNIQUE: Ultrasound of the deep veins is performed from the hip to the calf with compression sonography and color and pulse Doppler assessment. Spectral analysis with color-flow imaging is performed. FINDINGS: RIGHT: There is normal venous compression and respiratory variation and augmented flow. The visualized common femoral vein, superficial femoral vein, profunda femoral vein, popliteal vein, and the trifurcation region shows no evidence of deep venous thrombosis. Bilateral peroneal veins were not visualized. There is no significant popliteal fossa cyst. LEFT: There is normal venous compression and respiratory variation and augmented flow. The visualized common femoral vein, superficial femoral vein, profunda femoral vein, and popliteal vein show no evidence of deep venous thrombosis. The left posterior tibial vein is not compressible with evidence suggesting thrombosis of the left posterior tibial vein. Bilateral peroneal veins were not visualized. There is no significant popliteal fossa cyst. If the patient's symptoms persist, followup ultrasound in 5 days 7 days might be of value to exclude proximal propagation from a non-visualized calf vein. US/US venous duplex LE IMPRESSION: 1. The left posterior tibial vein is not compressible with evidence suggesting thrombosis of the left posterior tibial vein. 2. Bilateral peroneal veins were not visualized. 3. No DVT demonstrated in the right lower extremity. This study was presented today April 28, 2024 for interpretation. Stat results provided at this time as requested by referring provider.
[2024-04-28 09:03] VITALS: BP 151/81; PULSE 88; RESP 16; TEMP 37.1; O2SAT 96; BMI 38.9
--- NOTE | 2024-04-28 09:35 | ECG_ITS ---
Test Reason : DYSPEA Blood Pressure : / mmHG Vent. Rate : 063 BPM Atrial Rate : 063 BPM P-R Int : 178 ms QRS Dur : 092 ms QT Int : 412 ms P-R-T Axes : 037 018 013 degrees QTc Int : 421 ms Sinus rhythm with marked sinus arrhythmia Otherwise normal ECG No previous ECGs available Referred By: Gema Bustillo Electronically Signed By:CATHLEEN RIVER MD
--- NOTE | 2024-04-28 09:48 | ED_ITS ---
HPI - General Adult General Chief complaint: General Medical Stated complaint: swelling, no bowel movement,recent surgery sunday Time Seen by Provider: 04/28/24 09:11 Source: patient, family and old records reviewed Mode of arrival: ambulatory Limitations: no limitations History of Present Illness ED Provider: REGIS TRUJILLO narrative: 43 yo female with PMH of asthma and renal colic admitted here Sunday AM for cholecystitis s/p lap kenneth with DC home Sunday afternoon she has been at home. Reports worsening leg swelling, hand swelling, nausea, abdominal pain R flank pain and distention of abdomen. She has not had a BM and only took one hydrocodone since discharge. She did pass gas today. She cannot wear her own shoes due to swelling. She has been taking motrin for pain. MD complaint: swelling, abdominal pain Onset (ago): day(s) (since Sunday) Location: abdomen, left, right, upper extremity and lower extremity Radiation: non-radiation Severity: moderate Quality: aching Pain Consistency: constant Relieving factors: none Exacerbating factors: movement Associated symptoms: loss of appetite and nausea/vomiting Treatments prior to arrival: NSAID Related Data Home Medications ?Medication ?Instructions ?Recorded ?Confirmed albuterol sulfate 90 mcg/actuation 1 - 2 inh inhalation QID PRN 04/25/24 04/25/24 aerosol inhaler (Ventolin HFA) Shortness Of Breath Or Wheezing fluticasone propionate 50 1 spray intranasal BID 04/25/24 04/25/24 mcg/actuation nasal spray,suspension ibuprofen 600 mg tablet 600 mg PO BID PRN Pain 04/25/24 04/25/24 loratadine 10 mg tablet (Claritin) 10 mg PO DAILY 04/25/24 04/25/24 multivitamin 1 tab PO DAILY 04/25/24 04/25/24 Previous Rx's ?Medication ?Instructions ?Recorded hydrocodone 5 mg-acetaminophen 325 1 tab PO Q4-6H PRN pain #30 tabs 04/25/24 mg tablet apixaban 5 mg (74 tabs) tablets in 5 mg PO BID #74 ea 04/28/24 a dose pack (Eliquis DVT-PE Treat 30D Start) docusate sodium 100 mg capsule 100 mg PO BID PRN constipation #30 04/28/24 (Colace) caps sennosides 8.6 mg capsule (senna) 8.6 mg PO BEDTIME PRN constipation 04/28/24 #30 caps Allergies Allergy/AdvReac Type Severity Reaction Status Date / Time oxycodone [OXYCODONE] Allergy Mild HIVES Verified 04/28/24 09:12 Review of Systems 2 Review of Systems: Constitutional : No Fever, No Chills, pos Fatigue ENT/Mouth : No sore throat, No Rhinorrhea Eyes: No Eye Pain, No Swelling, No Redness Cardiovascular : No Chest Pain, No SOB, No Dyspnea on Exertion, pos edema Respiratory : No Cough, No Sputum Gastrointestinal : pos Nausea, No Vomiting, No Diarrhea, pos abdominal Pain, pos constipation Genitourinary : No Dysuria, No Urinary Frequency, No Hematuria, Musculoskeletal : No joint pain, No Myalgias, No Joint Swelling Skin : No Skin Lesions, No rash Neuro : No Weakness, No Numbness, No Dizziness, no Headache Psych : No Anxiety/Panic, No Depression All other systems reviewed and are negative PMFSH Past Medical History Attestation statement: The following information was validated with the patient. Source: old records reviewed Medical History Asthma Sleep apnea Ovarian cyst Kidney stone Surgical History H/O lumpectomy Previous section Social History Social History Patient Tobacco Use Status: Current everyday Tobacco user Tobacco use type: Cigarette Cigarettes Per Day: 4 Smoked in Last 30 Days: Yes Use of substances other than those prescribed or required for medical reasons: No Advance Directives: No Advance Directives Information Provided: Yes Patient : No Physical Exam ED Vital Signs: Vital Signs - 24 hr 04/28/24 09:03 04/28/24 11:54 Temperature 98.7 F 98.2 F Pulse Rate 88 68 Respiratory Rate 16 18 Blood Pressure 151/81 H 144/87 H Pulse Oximetry 96 98 Oxygen Delivery Method Room Air Room Air BMI result Body Mass Index 38.9 Appearance: Alert. Oriented X3. No acute distress. Eyes: Pupils equal, round and reactive to light. ENT: Pharynx normal. Neck: Normal inspection. Neck supple. CVS: Normal heart rate and rhythm. Pulses normal. Respiratory: No respiratory distress. Breath sounds normal. Abdomen: Soft and distended with ttp throughout R lower incision hematoma but soft, abdomen is not tense Skin: Skin warm and dry. Normal skin color. Normal skin turgor. Extremities: bilateral pitting 1+ to mid calf lower extremity edema. No calf ttp Neuro: Oriented X 3. No motor deficit. No sensory deficit. Medications Administered Discontinued Medications Generic Name Dose Route Start Last Admin Trade Name Fior PRN Reason Stop Dose Admin Iohexol 100 ml 04/28/24 11:14 04/28/24 11:14 Iohexol 350 Mg/Ml 100 Ml Infus..Btl IV 04/28/24 11:15 85 ml ONCE ONE Administration Medical Decision Making Medical Decision Making [facility] Narrative: 43 yo female with PMH of asthma and renal colic s/p lap kenneth on Sunday here with c/o nausea, constipation she is passing gas this AM, leg swelling at this time will need labs, EKG, US of both legs for DVT, CT scan of abdomen for ileus, biloma vs hematoma vs retained stone - hold of fluids. Recheck CBC. Differential Diagnosis Differential Diagnoses: The differential diagnosis associated with the presentation includes edema due to aggressive fluid management, biloma, constipation, post op ileus, DVT Admission/Observation Consideration of admission/observation: Escalation of care including admission/observation considered CT scan normal, VS Stable, no signs of PE can be managed as outpatient Dr. Bird aware can start on blood thinner will start eliquis Consult Healthcare Provider message sent to Pelon pending call back about DVT therapy Lab Data [facility] Lab Attestation statement: I reviewed the patient's lab results. 04/28/24 09:51 04/28/24 09:51 Labs: Lab Results 04/28/24 04/28/24 Range/Units 09:51 11:56 WBC 9.5 (4.8-10.8) X10*3/uL RBC 5.06 (4.20-5.50) X10*6/uL Hgb 11.9 L (12.0-16.0) g/dl Hct 35.9 L (37.0-47.0) % MCV 70.9 L (80.0-98.0) fL MCH 23.5 L (27.0-33.0) pg MCHC 33.1 (31.0-35.0) g/dl RDW 14.6 (11.0-16.0) % Plt Count 232 (160-400) X10*3/uL MPV 9.4 (9.4-12.3) fL Immature Gran % (Auto) 0.6 H (0.0-0.4) % Neut % (Auto) 61.8 (45-73) % Lymph % (Auto) 27.2 (20-40) % [place] % (Auto) 9.6 (2-11) % Eos % (Auto) 0.4 (0-4) % Baso % (Auto) 0.4 (0-2) % Lymph # (Auto) 2.6 (1.2-4.9) X10*3/uL [place] # (Auto) 0.9 (0.1-1.2) X10*3/uL Eos # (Auto) 0.0 (0.0-0.4) X10*3/uL Baso # (Auto) 0.0 (0.0-0.2) X10*3/uL Abs Immat Gran (auto) 0.06 H (0.00-0.03) X10*3/uL Absolute Neuts (auto) 5.8 (2.0-8.3) x10*3/uL Absolute Nucleated RBC 0.000 (0.0-0.012) X10*3/uL Nucleated RBC % (auto) 0.0 (0.0-0.2) /100WBC Sodium 137 (135-145) mmol/L Potassium 3.7 (3.3-5.1) mmol/L Chloride 107 (96-108) mmol/L Carbon Dioxide 24 (22-29) mmol/L Anion Gap 10 L (12-20) BUN 10 (9-16) mg/dL Creatinine 0.66 (0.5-1.4) mg/dL Estim Creat Clear Calc 144.0 Estimated GFR > 60 Random Glucose 93 (60-115) mg/dL Calcium 8.6 D (8.4-10.2) mg/dL Magnesium 1.8 (1.6-2.6) mg/dL Total Bilirubin 0.6 (0.0-1.0) mg/dL Direct Bilirubin 0.2 (0.0-0.5) mg/dL AST 22 (5-31) U/L ALT 37 H (0-31) U/L Alkaline Phosphatase 63 (39-117) U/L Troponin I High Sens < 2.7 (<3.5-17.0) ng/L B-Natriuretic Peptide 98 (<100) pg/mL Total Protein 7.1 (6.5-8.0) g/dL Albumin 3.6 (3.5-5.0) g/dL Lipase 11 (8-78) U/L Urine Color Yellow Urine Appearance Clear Urine pH 7.5 (5.0-9.0) Ur Specific [place] 1.015 (1.005-1.025) Urine Protein Negative (Neg-Trace) mg/dL Urine Glucose (UA) Negative (Negative) mg/dL Urine Ketones Trace (Negative) mg/dL Urine Blood Trace H (Negative) Urine Nitrite Negative (Negative) Ur Leukocyte Esterase Trace H (Negative) Urine RBC 6-10 H (0-2) /HPF Urine WBC 0-5 (0-5) /HPF Ur Squamous Epith Cells 3-5 (0-2) /HPF Urine Bacteria None Seen (None Seen) Hyaline Casts 0-2 (0-2) /LPF Influenza Type A (PCR) NEGATIVE (Negative) Influenza Type B (PCR) NEGATIVE (Negative) RSV RNA Qual (PCR) NEGATIVE (Negative) SARS-CoV-2 RNA (RT-PCR) NEGATIVE (Negative) Independent Interpretation I performed an independent interpretation of an: EKG, Ultrasound (+ DVT) and CT Scan (no acute post surgical pathology ) Interpretation: Rate: 63 Rhythm: NSR [place]: normal Normal P waves. Normal FRANCIE. Normal QRS complex. ST T wave : inverted t waves III, no CARY qTC: 421 prior studies: no acute ischemia The study has been interpreted contemporaneously by me. . Radiology Impression Discussion of test interpretation with radiology: I have reviewed the radiologist's reading. Independent Historian Clinical information obtained from an independent historian. History obtained from or confirmed by: Other (son) External Record Review External record reviewed: Inpatient record Prescription Management I considered prescription management with: Other Discharge Plan Discharge Clinical Impression: Constipation Qualifiers: Constipation type: drug induced constipation Qualified Code(s): K59.03 - Drug induced constipation DVT (deep venous thrombosis) Qualifiers: DVT location: lower extremity Affected thrombotic vein of extremity: tibial C hronicity: acute Laterality: left Qualified Code(s): I82.442 - Acute embolism and thrombosis of left tibial vein Patient Disposition: Home, Self-Care Instructions: Apixaban (By mouth), Constipation (ED), Deep Vein Thrombosis (ED) Additional Instructions: return for worsening pain bleeding - bloody nose, black or bloody stools, head strikes, heavy vaginal bleeding or any other concerns you will likely be on this for 3 months it was provoked but you need to see your primary care doctor as soon as possible CT scan no acute findings. you are NOT allowed to take MOTRIN, ADVIL, ALEVE, ASPIRIN, NAPROSYN TYLENOL IS OKAY Prescriptions: New docusate sodium [Colace] 100 mg capsule 100 mg PO BID PRN (Reason: constipation) Qty: 30 0RF senna 8.6 mg capsule 8.6 mg PO BEDTIME PRN (Reason: constipation) Qty: 30 0RF Eliquis DVT-PE Treat 30D Start 5 mg (74 tabs) tablets,dose pack 5 mg PO BID Qty: 74 0RF Rx Instructions: 10mg BID for 7 days followed by 5mg twice a day No Action multivitamin Tablet 1 tab PO DAILY ibuprofen [Motrin] 600 mg Tablet 600 mg PO BID PRN (Reason: Pain) albuterol sulfate [Ventolin HFA] 90 mcg/actuation Hfa Aerosol Inhaler 1 - 2 inh INHALATION QID PRN (Reason: Shortness Of Breath Or Wheezing) fluticasone propionate [Flonase] 50 mcg/actuation [place],Suspension 1 spray INTRANASAL BID Rx Instructions: administer into each nostril loratadine [Claritin] 10 mg Tablet 10 mg PO DAILY hydrocodone-acetaminophen 5-325 mg tablet 1 tab PO Q4-6H PRN (Reason: pain) Qty: 30 0RF Rx Instructions: Partial Fill upon patient request. Print Language: Danish
[2024-04-28 09:59] LABS: MANUAL DIFF FLAG NO
[2024-04-28 10:00] LABS: Basophils Percent Auto 0.4 % (0-2); Eosinophils Percent Auto 0.4 % (0-4); Hematocrit 35.9 % (37.0-47.0); Hemoglobin 11.9 g/dl (12.0-16.0); Imm Gran Abs Auto 0.06 X10*3/uL (0.00-0.03); Imm Gran Pct Auto 0.6 % (0.0-0.4); Lymphocytes Absolute Auto 2.6 X10*3/uL (1.2-4.9); Lymphocytes Percent Auto 27.2 % (20-40); Mean Corpuscular HGB Conc 33.1 g/dl (31.0-35.0); Mean Corpuscular Hemoglobin 23.5 pg (27.0-33.0); Mean Corpuscular Volume 70.9 fL (80.0-98.0); Mean Platelet Volume 9.4 fL (9.4-12.3); Monocytes Absolute Auto 0.9 X10*3/uL (0.1-1.2); Monocytes Percent Auto 9.6 % (2-11); Neutrophils Absolute Auto 5.8 x10*3/uL (2.0-8.3); Neutrophils Percent Auto 61.8 % (45-73); Platelet Count 232 X10*3/uL (160-400); Red Blood Count 5.06 X10*6/uL (4.20-5.50); Red Cell Distribution Width 14.6 % (11.0-16.0); White Blood Count 9.5 X10*3/uL (4.8-10.8)
[2024-04-28 10:14] LABS: Alanine Aminotransferase 37 U/L (0-31); Albumin Level 3.6 g/dL (3.5-5.0); Alkaline Phosphatase 63 U/L (39-117); Anion Gap 10 (12-20); Aspartate Amino Transferase 22 U/L (5-31); Bilirubin Direct 0.2 mg/dL (0.0-0.5); Bilirubin Total 0.6 mg/dL (0.0-1.0); Blood Urea Nitrogen 10 mg/dL (9-16); Calcium 8.6 mg/dL (8.4-10.2); Carbon Dioxide 24 mmol/L (22-29); Chloride 107 mmol/L (96-108); Estimated Glomerular Filt Rate > 60; Glucose Random 93 mg/dL (60-115); Lipase 11 U/L (8-78); Magnesium 1.8 mg/dL (1.6-2.6); Potassium 3.7 mmol/L (3.3-5.1); Sodium 137 mmol/L (135-145); Total Protein 7.1 g/dL (6.5-8.0)
[2024-04-28 10:18] LABS: B Type Natriuretic Peptide 98 pg/mL (<100)
[2024-04-28 10:27] LABS: Troponin-I High Sensitivity < 2.7 ng/L (<3.5-17.0)
[2024-04-28 10:40] LABS: Influenza A PCR NEGATIVE (Negative); Influenza B PCR NEGATIVE (Negative); Resp Syncy Virus RNA Qual PCR NEGATIVE (Negative); SARS COV2 PCR INHOUSE NEGATIVE (Negative)
[2024-04-28] MEDS: iohexoL 350 MG/ML 100 ML INFUS..BTL IV (11:14)
[2024-04-28 11:54] VITALS: BP 144/87; PULSE 68; RESP 18; TEMP 36.8; O2SAT 98
[2024-04-28 12:04] LABS: Appearance Urine Clear; Color Urine Yellow; Glucose Urine UA Negative (Negative); Leukocyte Esterase Urine Trace (Negative); Nitrite Urine Negative (Negative); PH 7.5 (5.0-9.0); Specific Gravity - Urine 1.015 (1.005-1.025); UMIC TRIGGER UACC YES; Urine Blood Trace (Negative); Urine Ketones Trace mg/dL (Negative); Urine Protein Negative (Neg-Trace)
[2024-04-28 12:07] LABS: Bacteria Urine None Seen (None Seen); Hyaline Casts Urine 0-2 /LPF (0-2); WBC Urine 0-5 /HPF (0-5)
[2024-04-28 13:56] VITALS: BP 133/76; PULSE 78; RESP 18; TEMP 37.2; O2SAT 97
== END 2024-04-28 13:57 | disposition home or self-care (01) ==
PROVIDERS: Emergency Provider Emergency Medicine
DX: I82.442 Acute embolism and thrombosis of left tibial vein (principal); K59.03 Drug induced constipation; K59.00 Constipation, unspecified; R60.0 Localized edema; I49.8 Other specified cardiac arrhythmias; R14.0 Abdominal distension (gaseous); R11.2 Nausea with vomiting, unspecified; R06.02 Shortness of breath; F17.210 Nicotine dependence, cigarettes, uncomplicated; Z79.899 Other long term (current) drug therapy; Z03.818 Encounter for observation for suspected exposure to other biological agents ruled out
CPT/HCPCS: 0241U; 36415; 71045; 74177; 80048; 80076; 81001; 81003; 83690; 83735; 83880; 84484; 85025; 93005; 93970; 99283; 99284; 99285; Q9967

== ENCOUNTER → 2024-04-28 09:35 | Outpatient (BNV) | payer OTHER, SELFPAY | PROVIDERS: Emergency Provider Emergency Medicine; Visit Provider Internal Medicine Cardiovascular Disease | DX: R06.00 Dyspnea, unspecified (principal) | CPT/HCPCS: 93010 ==

== ENCOUNTER 2024-08-11 10:13 | Emergency (ER) | payer OTHER, SELFPAY ==
--- NOTE | ~2024-08-11 | CT_ITS ---
EXAMINATION: CT ABDOMEN AND PELVIS WITH CONTRAST CLINICAL INFORMATION: Abdominal pain COMPARISON: CT abdomen and pelvis 04/28/2024. TECHNIQUE: Multidetector volumetric images were obtained from the superior aspect of the liver through the pubic symphysis following administration 85 mL of Omnipaque 350 intravenous contrast. Sagittal and coronal reformatted images were obtained on the technologist's workstation. Oral contrast: No This CT examination was performed using dose optimization techniques as appropriate, variously including the following: *Automated exposure control *Adjustment of mA and/or kV according to patient size (this includes techniques or standardized protocols for targeted exams where dose is matched to indication/reason for exam; i.e. extremities or head) *Use of iterative reconstruction technique DLP: 1007 mGy-cm FINDINGS: LUNG BASES: The visualized lung bases are unremarkable. LIVER, GALLBLADDER, AND BILIARY TREE: The liver is normal in size, shape, and attenuation. No focal hepatic lesion or biliary ductal dilatation is present. Cholecystectomy clips identified. PANCREAS: Unremarkable. SPLEEN: 1 cm rounded low density benign-appearing focus inferiorly within the spleen which warrants no additional imaging follow-up in the basis of this exam. Similar vague low-density focus is noted in this region on the comparison study. ADRENAL GLANDS: Unremarkable. KIDNEYS AND URETERS: Bilaterally symmetric nephrographic enhancement. Incidental note of several left parapelvic renal cysts which were no additional imaging follow-up on the basis of this examination. 3 mm low-density focus in the interpolar segment left kidney which on the basis of this exam warrants no additional imaging follow-up. No ureterectasis. No ureteral calculi noted. BLADDER: Decompressed GASTROINTESTINAL TRACT: Normal appearance of the appendix. No free intraperitoneal fluid or gas collections. No intestinal dilatation or intestinal mural thickening noted. Normal appearance of the stomach and duodenum ABDOMINAL WALL: No significant hernia is appreciated. LYMPH NODES: Normal. VASCULAR: Unremarkable. PELVIC VISCERA: Intrauterine device in situ is noted. No adnexal lesions noted. OSSEOUS STRUCTURES: No suspicious skeletal lesions. Scattered anterior endplate osteophytosis of the thoracolumbar spine. CT/CT abdomen pelvis w IV con IMPRESSION: 1. No acute abnormalities identified. Normal appearance of the appendix. No free intraperitoneal fluid or gas collections. 2. Status post cholecystectomy. Electronically signed by: Rigoberto Watt MD 08/12/2024 12:13 AM JAG VAZQUEZ
[2024-08-11 10:16] VITALS: BP 145/84; PULSE 72; RESP 16; TEMP 36.9; O2SAT 98; BMI 46.6
[2024-08-11 10:46] LABS: MANUAL DIFF FLAG NO
[2024-08-11 11:02] LABS: Alanine Aminotransferase 14 U/L (0-31); Alkaline Phosphatase 74 U/L (39-117); Anion Gap 9 (12-20); Aspartate Amino Transferase 17 U/L (5-31); Bilirubin Total 0.5 mg/dL (0.0-1.0); Blood Urea Nitrogen 8 mg/dL (9-16); Calcium 9.3 mg/dL (8.4-10.2); Carbon Dioxide 26 mmol/L (22-29); Chloride 108 mmol/L (96-108); Creatinine Clr Calc Pharmacy 116.8; Estimated Glomerular Filt Rate > 60; Glucose Random 98 mg/dL (60-115); Potassium 4.3 mmol/L (3.3-5.1); Sodium 139 mmol/L (135-145); Total Protein 7.6 g/dL (6.5-8.0)
[2024-08-11 14:44] LABS: Basophils Percent Auto 0.4 % (0-2); Eosinophils Percent Auto 0.5 % (0-4); Hematocrit 40.4 % (37.0-47.0); Hemoglobin 12.6 g/dl (12.0-16.0); Imm Gran Abs Auto 0.04 X10*3/uL (0.00-0.03); Imm Gran Pct Auto 0.5 % (0.0-0.4); Lymphocytes Absolute Auto 2.5 X10*3/uL (1.2-4.9); Lymphocytes Percent Auto 29.4 % (20-40); Mean Corpuscular HGB Conc 31.2 g/dl (31.0-35.0); Mean Corpuscular Volume 73.9 fL (80.0-98.0); Mean Platelet Volume 9.5 fL (9.4-12.3); Monocytes Absolute Auto 0.7 X10*3/uL (0.1-1.2); Monocytes Percent Auto 8.4 % (2-11); Neutrophils Absolute Auto 5.1 x10*3/uL (2.0-8.3); Neutrophils Percent Auto 60.8 % (45-73); Platelet Count 274 X10*3/uL (160-400); Red Blood Count 5.47 X10*6/uL (4.20-5.50); Red Cell Distribution Width 14.7 % (11.0-16.0); White Blood Count 8.4 X10*3/uL (4.8-10.8)
--- NOTE | 2024-08-11 19:00 | ED.ABDPAIN ---
HPI - Abdominal Pain General Chief Complaint: Abdominal Pain Stated Complaint: abd pain diarrhea vomiting Time Seen by Provider: 08/11/24 18:34 History of Present Illness HPI narrative: Patient is a 43-year-old female presents today with having diarrhea for the last 14 days. Generalized malaise weakness. Some cramping. The stool is brown in color. Patient sexually active but had an IUD in place. Patient denies any vaginal bleeding. Denies any bloody stool. Denies any travel history. Denies any recent antibiotics. Denies any camping. Patient from home. No history of similar pain in the past. The pain is worse over the right side over the entire right flank area. No history of kidney stones in the past. Related Data Home Medications ?Medication ?Instructions ?Recorded ?Confirmed albuterol sulfate 90 mcg/actuation 1 - 2 inh inhalation QID PRN 04/25/24 04/25/24 aerosol inhaler (Ventolin HFA) Shortness Of Breath Or Wheezing fluticasone propionate 50 1 spray intranasal BID 04/25/24 04/25/24 mcg/actuation nasal spray,suspension ibuprofen 600 mg tablet 600 mg PO BID PRN Pain 04/25/24 04/25/24 loratadine 10 mg tablet (Claritin) 10 mg PO DAILY 04/25/24 04/25/24 multivitamin 1 tab PO DAILY 04/25/24 04/25/24 Previous Rx's ?Medication ?Instructions ?Recorded hydrocodone 5 mg-acetaminophen 325 1 tab PO Q4-6H PRN pain #30 tabs 04/25/24 mg tablet apixaban 5 mg (74 tabs) tablets in 5 mg PO BID #74 ea 04/28/24 a dose pack (DailyCred DVT-PE Treat 30D Start) docusate sodium 100 mg capsule 100 mg PO BID PRN constipation #30 04/28/24 (Colace) caps sennosides 8.6 mg capsule (senna) 8.6 mg PO BEDTIME PRN constipation 04/28/24 #30 caps Allergies Allergy/AdvReac Type Severity Reaction Status Date / Time oxycodone [OXYCODONE] Allergy Mild HIVES Verified 08/11/24 10:21 Review of Systems Review of Systems Positive abdominal pain nausea vomiting diarrhea Yes all other systems are reviewed and are negative PMFSH Past Medical History Attestation statement: The following information was validated with the patient. Medical History Asthma Sleep apnea Ovarian cyst Kidney stone Surgical History H/O lumpectomy Previous section Social History Social History Alcohol intake: current Alcohol intake frequency: holidays/special occasions only Patient Tobacco Use Status: Current everyday Tobacco user Tobacco use type: Cigarette Cigarettes Per Day: 4 Smoked in Last 30 Days: Yes Use of substances other than those prescribed or required for medical reasons: Yes Substance Use Type: Marijuana Advance Directives: No Advance Directives Information Provided: No Do you have a plan to hurt others: No Plan Patient : No Physical Exam ED Vital Signs: Vital Signs - 24 hr 08/11/24 10:16 08/11/24 19:34 08/11/24 23:41 Temperature 98.4 F 98.1 F Pulse Rate 72 60 66 Respiratory Rate 16 16 20 Blood Pressure 145/84 H 109/35 L 136/65 Pulse Oximetry 98 98 98 Oxygen Delivery Method Room Air Room Air Room Air BMI result Body Mass Index 46.6 Appearance: Alert. Oriented X3. No acute distress. Eyes: Pupils equal, round and reactive to light. ENT: Pharynx normal. Neck: Normal inspection. Neck supple. No lymph nodes noted. No crepitus CVS: Normal heart rate and rhythm. Pulses normal. Normal S1 and S2 Respiratory: No respiratory distress. Breath sounds normal. No Wheezing. No rales Abdomen: Soft and nontender. No rigidity. No distention. good BS x4 Skin: Skin warm and dry. Normal skin color. Normal skin turgor. Extremities: No lower extremity edema. Neurovascular intact to all extremities. No Lacerations. No Rash Neuro: Oriented X 3. No motor deficit. No sensory deficit. Moving all extermities. No slurred speech Medical Decision Making Medical Decision Making MDM Narrative: Patient is 43 years old presents today with having abdominal pain diarrhea that is been ongoing worse on the right side. Patient's urine showed no signs of infection. test is negative no evidence for related issues. LFTs are normal no evidence for biliary disease. Patient's electrolytes are normal. White count was 8.4. CT scan of the abdomen pelvis showed no acute evidence of obstruction abscess perforation. No acute finding. Will discharge patient home close follow-up on an outpatient basis Differential Diagnosis Differential Diagnoses: The differential diagnosis associated with the presentation includes Obstruction, abscess, perforation, appendicitis Admission/Observation Consideration of admission/observation: Escalation of care including admission/observation considered Lab Data MDM Lab Attestation statement: I reviewed the patient's lab results. 08/11/24 10:42 08/11/24 10:42 Labs: Lab Results 08/11/24 08/11/24 Range/Units 10:42 19:37 WBC 8.4 (4.8-10.8) X10*3/uL RBC 5.47 (4.20-5.50) X10*6/uL Hgb 12.6 (12.0-16.0) g/dl Hct 40.4 (37.0-47.0) % MCV 73.9 L (80.0-98.0) fL MCH 23.0 L (27.0-33.0) pg MCHC 31.2 (31.0-35.0) g/dl RDW 14.7 (11.0-16.0) % Plt Count 274 (160-400) X10*3/uL MPV 9.5 (9.4-12.3) fL Immature Gran % (Auto) 0.5 H (0.0-0.4) % Neut % (Auto) 60.8 (45-73) % Lymph % (Auto) 29.4 (20-40) % [place] % (Auto) 8.4 (2-11) % Eos % (Auto) 0.5 (0-4) % Baso % (Auto) 0.4 (0-2) % Lymph # (Auto) 2.5 (1.2-4.9) X10*3/uL [place] # (Auto) 0.7 (0.1-1.2) X10*3/uL Eos # (Auto) 0.0 (0.0-0.4) X10*3/uL Baso # (Auto) 0.0 (0.0-0.2) X10*3/uL Abs Immat Gran (auto) 0.04 H (0.00-0.03) X10*3/uL Absolute Neuts (auto) 5.1 (2.0-8.3) x10*3/uL Absolute Nucleated RBC 0.000 (0.0-0.012) X10*3/uL Nucleated RBC % (auto) 0.0 (0.0-0.2) /100WBC Sodium 139 (135-145) mmol/L Potassium 4.3 (3.3-5.1) mmol/L Chloride 108 (96-108) mmol/L Carbon Dioxide 26 (22-29) mmol/L Anion Gap 9 L (12-20) BUN 8 L (9-16) mg/dL Creatinine 0.76 (0.5-1.4) mg/dL Estim Creat Clear Calc 116.8 Estimated GFR > 60 Random Glucose 98 (60-115) mg/dL Calcium 9.3 D (8.4-10.2) mg/dL Total Bilirubin 0.5 (0.0-1.0) mg/dL AST 17 (5-31) U/L ALT 14 (0-31) U/L Alkaline Phosphatase 74 (39-117) U/L Total Protein 7.6 (6.5-8.0) g/dL Albumin 4.0 (3.5-5.0) g/dL Urine Color Dark Yellow Urine Appearance Clear Urine pH 6.0 (5.0-9.0) Ur Specific [place] 1.025 (1.005-1.025) Urine Protein Negative (Neg-Trace) mg/dL Urine Glucose (UA) Negative (Negative) mg/dL Urine Ketones 15 (Negative) mg/dL Urine Blood Negative (Negative) Urine Nitrite Negative (Negative) Ur Leukocyte Esterase Trace H (Negative) Urine RBC 0-2 (0-2) /HPF Urine WBC 6-10 H (0-5) /HPF Ur Squamous Epith Cells 6-10 (0-2) /HPF Urine Bacteria 1+ (None Seen) Hyaline Casts 0-2 (0-2) /LPF Urine Test NEGATIVE (NEGATIVE) Radiology Impression Discussion of test interpretation with radiology: I have reviewed the radiologist's reading. Medications Administered Discontinued Medications Generic Name Dose Route Start Last Admin Trade Name Freq PRN Reason Stop Dose Admin Sodium Chloride 1,000 mls @ 999 mls/hr 08/11/24 19:00 08/11/24 22:34 Ns IV 08/11/24 20:00 Infused .Q1H1M OC Infusion Iohexol 100 ml 08/11/24 20:13 08/11/24 20:13 Iohexol 350 Mg/Ml 100 Ml Infus..Btl IV 08/11/24 20:14 100 ml ONCE ONE Administration Ketorolac Tromethamine 30 mg 08/11/24 18:59 08/11/24 19:49 Ketorolac Tromethamine 30 Mg/Ml Vial IVPUSH 08/11/24 19:00 30 mg ONCE ONE Administration Ondansetron HCl 4 mg 08/11/24 18:59 08/11/24 19:49 Ondansetron Hcl 4 Mg/2 Ml Vial IVPUSH 08/11/24 19:00 4 mg ONCE ONE Administration Discharge Plan Discharge Clinical Impression: Abdominal pain Patient Disposition: Home, Self-Care Instructions: Abdominal Pain (ED) Prescriptions: No Action multivitamin Tablet 1 tab PO DAILY ibuprofen [Motrin] 600 mg Tablet 600 mg PO BID PRN (Reason: Pain) albuterol sulfate [Ventolin HFA] 90 mcg/actuation Hfa Aerosol Inhaler 1 - 2 inh INHALATION QID PRN (Reason: Shortness Of Breath Or Wheezing) fluticasone propionate [Flonase] 50 mcg/actuation [place],Suspension 1 spray INTRANASAL BID Rx Instructions: administer into each nostril loratadine [Claritin] 10 mg Tablet 10 mg PO DAILY hydrocodone-acetaminophen 5-325 mg tablet 1 tab PO Q4-6H PRN (Reason: pain) Qty: 30 0RF Rx Instructions: Partial Fill upon patient request. docusate sodium [Colace] 100 mg capsule 100 mg PO BID PRN (Reason: constipation) Qty: 30 0RF senna 8.6 mg capsule 8.6 mg PO BEDTIME PRN (Reason: constipation) Qty: 30 0RF Eliquis DVT-PE Treat 30D Start 5 mg (74 tabs) tablets,dose pack 5 mg PO BID Qty: 74 0RF Rx Instructions: 10mg BID for 7 days followed by 5mg twice a day Referrals: [facility] [Provider Group] - 08/14/24 Print Language: Swiss
[2024-08-11 19:34] VITALS: BP 109/35; PULSE 60; RESP 16; O2SAT 98
[2024-08-11 19:47] LABS: Appearance Urine Clear; Color Urine Dark Yellow; Glucose Urine UA Negative (Negative); Leukocyte Esterase Urine Trace (Negative); Nitrite Urine Negative (Negative); Specific Gravity - Urine 1.025 (1.005-1.025); UMIC TRIGGER UACC YES; Urine Blood Negative (Negative); Urine Ketones 15 mg/dL (Negative); Urine Protein Negative (Neg-Trace)
[2024-08-11 19:49] LABS: UPreg QC Valid YES; Urine Pregnancy NEGATIVE (NEGATIVE)
[2024-08-11] MEDS: Ketorolac Tromethamine 30 MG/ML VIAL IVPUSH (19:49)
[2024-08-11] MEDS: ondansetron HCL 4 MG/2 ML VIAL IVPUSH (19:49)
[2024-08-11] MEDS: 0.9 % Sodium Chloride 1,000 ML 999 ML IV (19:49)
[2024-08-11 20:05] LABS: Bacteria Urine 1+ (None Seen); Hyaline Casts Urine 0-2 /LPF (0-2); RBC Urine 0-2 /HPF (0-2); UACC Culture Trigger YES
[2024-08-11] MEDS: iohexoL 350 MG/ML 100 ML INFUS..BTL IV (20:13)
--- NOTE | 2024-08-11 20:56 | PC.NURSE ---
pt back from CT. pt resting comfortably at this time. report he pain in now a mild discomfort , IV fluids infusing, awaiting CT results
[2024-08-11 23:41] VITALS: BP 136/65; PULSE 66; RESP 20; TEMP 36.7; O2SAT 98
--- NOTE | 2024-08-12 00:04 | PC.NURSE ---
pt requesting to leave, will follow her results of CT on the portal. MD chino
--- NOTE | 2024-08-12 00:22 | MHC.EDTECH ---
called [facility] at [phone] scan, on one picked up and voice mail said call back later
[2024-08-12 00:44] VITALS: BP 142/57; PULSE 67; RESP 18; TEMP 36.4; O2SAT 96
[2024-08-12 00:49] VITALS: BP 142/57; PULSE 67; RESP 18; TEMP 36.4; O2SAT 96
== END 2024-08-12 00:49 | disposition home or self-care (01) ==
PROVIDERS: Emergency Provider Emergency Medicine Emergency Medical Services
DX: R10.9 Unspecified abdominal pain (principal); R19.7 Diarrhea, unspecified
CPT/HCPCS: 36415; 74177; 80053; 81001; 81025; 85025; 87086; 96361; 96374; 96375; 99284; J1885; J2405; Q9967

== ENCOUNTER 2024-08-15 17:00 | Inpatient (IN) | payer OTHER, MEDICAID, SELFPAY ==
[2024-08-15 17:17] VITALS: BP 137/83; BP 138/76; PULSE 66; PULSE 76; RESP 20; TEMP 36.7; O2SAT 98; O2SAT 99; BMI 34.5
[2024-08-15 17:24] VITALS: RESP 16
[2024-08-15 17:38] LABS: MANUAL DIFF FLAG NO
[2024-08-15 17:39] LABS: Basophils Percent Auto 0.2 % (0-2); Eosinophils Percent Auto 0.4 % (0-4); Hematocrit 37.9 % (37.0-47.0); Hemoglobin 12.4 g/dl (12.0-16.0); Imm Gran Abs Auto 0.04 X10*3/uL (0.00-0.03); Imm Gran Pct Auto 0.4 % (0.0-0.4); Lymphocytes Absolute Auto 2.9 X10*3/uL (1.2-4.9); Lymphocytes Percent Auto 27.5 % (20-40); Mean Corpuscular HGB Conc 32.7 g/dl (31.0-35.0); Mean Corpuscular Hemoglobin 23.7 pg (27.0-33.0); Mean Corpuscular Volume 72.3 fL (80.0-98.0); Mean Platelet Volume 9.1 fL (9.4-12.3); Monocytes Absolute Auto 0.9 X10*3/uL (0.1-1.2); Monocytes Percent Auto 8.7 % (2-11); Neutrophils Absolute Auto 6.6 x10*3/uL (2.0-8.3); Neutrophils Percent Auto 62.8 % (45-73); Platelet Count 262 X10*3/uL (160-400); Red Blood Count 5.24 X10*6/uL (4.20-5.50); Red Cell Distribution Width 14.6 % (11.0-16.0); White Blood Count 10.6 X10*3/uL (4.8-10.8)
--- NOTE | 2024-08-15 17:39 | PC.NURSE ---
Patient is calm and cooperative, help seeking, offering no complaints at this time. Pt also reports that she has been out of her Eliquis for about 2 weeks now because no one will re-fill it .
[2024-08-15 17:40] LABS: Appearance Urine Cloudy; Color Urine Yellow; Glucose Urine UA Negative (Negative); Leukocyte Esterase Urine Moderate (2+) (Negative); Nitrite Urine Negative (Negative); PH 6.5 (5.0-9.0); Specific Gravity - Urine >= 1.030 (1.005-1.025); UMIC TRIGGER UACC YES; Urine Blood Moderate (2+) (Negative); Urine Ketones 80 mg/dL (Negative); Urine Protein Trace mg/dL (Neg-Trace)
[2024-08-15 17:41] LABS: UPreg QC Valid YES; Urine Pregnancy NEGATIVE (NEGATIVE)
[2024-08-15 17:58] LABS: Bacteria Urine 4+ (None Seen); RBC Urine >20 /HPF (0-2); UACC Culture Trigger YES; WBC Urine 21-50 /HPF (0-5)
--- NOTE | 2024-08-15 18:03 | ED_ITS ---
HPI - Psych General Chief Complaint: Psychiatric Symptoms Stated Complaint: SI Time Seen by Provider: 08/15/24 17:35 Source: patient, RN notes reviewed and old records reviewed Mode of arrival: ambulatory History of Present Illness ED Provider: Ema Quispe PA-C HPI Narrative: 43-year-old female with a past medical history of asthma, sleep apnea, renal stones, anxiety/depression, presenting to the ED via EMS complaining of SI with plan to overdose on pain medication. Patient reports familial issues with significant other and daughter causing increased stress at home. Reports suicidal ideations x months and has been trying to get in with therapist however has been unsuccessful. States he has been noncompliant with Eliquis and other medications x about 2 weeks due to refill issues. Denies HI, auditory/visual hallucinations, illicit substance or EtOH use Related Data Home Medications ?Medication ?Instructions ?Recorded ?Confirmed sertraline 25 mg tablet 25 mg PO DAILY 08/15/24 08/15/24 Previous Rx's ?Medication ?Instructions ?Recorded apixaban 5 mg (74 tabs) tablets in 5 mg PO BID #74 ea 04/28/24 a dose pack (Eliquis DVT-PE Treat 30D Start) Allergies Allergy/AdvReac Type Severity Reaction Status Date / Time oxycodone [OXYCODONE] Allergy Mild HIVES Verified 08/15/24 17:18 Review of Systems 2 Review of Systems: Yes all other systems are reviewed and are negative Constitutional: Constitutional: Reports as per HPI [facility] Past Medical History Attestation statement: The following information was validated with the patient. Source: old records reviewed Medical History Asthma Sleep apnea Ovarian cyst Kidney stone Surgical History H/O lumpectomy Previous section Social History Social History Alcohol intake: current Alcohol intake frequency: holidays/special occasions only Patient Tobacco Use Status: Current everyday Tobacco user Tobacco use type: Cigarette Cigarettes Per Day: 4 Smoked in Last 30 Days: Yes Use of substances other than those prescribed or required for medical reasons: Yes Substance Use Type: Marijuana Substance Use Frequency: Occasionally Last Used Substance: Weeks (ago) Advance Directives: No Advance Directives Information Provided: No Patient : No Physical Exam 2 Vital Signs: Vital Signs: Last Vital Signs Temp 98.0 F 08/15/24 17:17 Pulse 76 08/15/24 17:17 Resp 16 08/15/24 17:24 BP 137/83 08/15/24 17:17 Pulse Ox 99 08/15/24 17:17 O2 Del Method Room Air 08/15/24 17:17 BMI result Body Mass Index 34.5 Const: General: cooperative, healthy appearing and no acute distress O rientation/consciousness: patient oriented x3 Limitations: no limitations HEENT: Head: Yes normal to inspection and Yes atraumatic Ears: hearing grossly normal bilaterally General nose exam: Normal external nose present Face and sinus: Yes normal facial exam Eyes: General: appearance normal, both eyes and all related structures EOM: EOMs intact bilaterally Neck: Neck: Yes normal visual inspection and Yes no meningeal signs Resp: Effort & Inspection: normal respiratory effort and no respiratory distress Auscultation: clear to auscultation bilaterally Cardio: Rate: regular rate Heart sounds: S1 normal heart sound present and S2 normal heart sound present GI: Inspection: Yes normal to inspection Skin: Rashes: no rashes Wounds: no wounds Neuro: General: patient oriented x3, tone normal and no meningeal signs C ranial nerves: Yes CN's II-XII intact bilaterally Gait exam (Neuro): Normal gait present Extrem: General: Yes normal to inspection Psych: Speech and movement: Pressured speech present Affect: Sad affect present and Anxious affect present Thought process: Racing thoughts present Thought content: Suicidality present, no homicidality and Depressive thoughts present Course Course Course Narrative: - labs reassuring. UA contaminated will wait on culture prior to initiating antibiotics - patient medically cleared. Physician observation initiated at 20:01 > patient was evaluated by CARE team and determined to need inpatient level of care Medical Decision Making Medical Decision Making MDM Narrative: 43-year-old female with a past medical history of asthma, sleep apnea, renal stones, anxiety/depression, presenting to the ED via EMS complaining of SI with plan to overdose on pain medication. on exam vital signs stable, NAD, nontoxic appearing, sad, pressured speech, depressed with suicidal ideations with plan. States was about to take bottle of pills however daughter caught her. concern for increasing depression with suicidal ideations. Rule out substance use and organic causes Plan: Labs, UA, tox screen, CARE team consult Please refer to course for remaining clinical decision making, interpretation of labs/imaging results, and discussions with consultants and/or family members. Differential Diagnosis Differential Diagnoses: The differential diagnosis associated with the presentation includes As above Admission/Observation Consideration of admission/observation: Escalation of care including admission/observation considered Consult Healthcare Provider Management of the patient was discussed with: Behavioral Health Provider Lab Data [facility] Lab Attestation statement: I reviewed the patient's lab results. 08/15/24 17:30 08/15/24 17:30 Labs: Lab Results 08/15/24 Range/Units 17:30 WBC 10.6 (4.8-10.8) X10*3/uL RBC 5.24 (4.20-5.50) X10*6/uL Hgb 12.4 (12.0-16.0) g/dl Hct 37.9 (37.0-47.0) % MCV 72.3 L (80.0-98.0) fL MCH 23.7 L (27.0-33.0) pg MCHC 32.7 (31.0-35.0) g/dl RDW 14.6 (11.0-16.0) % Plt Count 262 (160-400) X10*3/uL MPV 9.1 L (9.4-12.3) fL Immature Gran % (Auto) 0.4 (0.0-0.4) % Neut % (Auto) 62.8 (45-73) % Lymph % (Auto) 27.5 (20-40) % [place] % (Auto) 8.7 (2-11) % Eos % (Auto) 0.4 (0-4) % Baso % (Auto) 0.2 (0-2) % Lymph # (Auto) 2.9 (1.2-4.9) X10*3/uL [place] # (Auto) 0.9 (0.1-1.2) X10*3/uL Eos # (Auto) 0.0 (0.0-0.4) X10*3/uL Baso # (Auto) 0.0 (0.0-0.2) X10*3/uL Abs Immat Gran (auto) 0.04 H (0.00-0.03) X10*3/uL Absolute Neuts (auto) 6.6 (2.0-8.3) x10*3/uL Absolute Nucleated RBC 0.000 (0.0-0.012) X10*3/uL Nucleated RBC % (auto) 0.0 (0.0-0.2) /100WBC Sodium 139 (135-145) mmol/L Potassium 3.7 (3.3-5.1) mmol/L Chloride 105 (96-108) mmol/L Carbon Dioxide 25 (22-29) mmol/L Anion Gap 13 (12-20) BUN 9 (9-16) mg/dL Creatinine 0.68 (0.5-1.4) mg/dL Estim Creat Clear Calc 131.2 Estimated GFR > 60 Random Glucose 95 (60-115) mg/dL Calcium 9.5 (8.4-10.2) mg/dL Total Bilirubin 0.5 (0.0-1.0) mg/dL AST 18 (5-31) U/L ALT 13 (0-31) U/L Alkaline Phosphatase 74 (39-117) U/L Total Protein 7.8 (6.5-8.0) g/dL Albumin 4.1 (3.5-5.0) g/dL Urine Color Yellow Urine Appearance Cloudy Urine pH 6.5 (5.0-9.0) Ur Specific [place] >= 1.030 H (1.005-1.025) Urine Protein Trace (Neg-Trace) mg/dL Urine Glucose (UA) Negative (Negative) mg/dL Urine Ketones 80 (Negative) mg/dL Urine Blood Moderate (2+) H (Negative) Urine Nitrite Negative (Negative) Ur Leukocyte Esterase Moderate (2+) H (Negative) Urine RBC >20 H (0-2) /HPF Urine WBC 21-50 H (0-5) /HPF Ur Squamous Epith Cells 11-20 (0-2) /HPF Urine Bacteria 4+ (None Seen) Hyaline Casts 3-5 (0-2) /LPF Urine Test NEGATIVE (NEGATIVE) Urine Opiates Screen Not Detected (Not Detect) Ur Buprenorphine Scrn Not Detected (Not Detect) ng/mL Ur Oxycodone Screen Not Detected (Not Detect) ng/mL Urine Methadone Screen Not Detected (Not Detect) ng/mL Urine Fentanyl Screen Not Detected (Not Detect) Ur Barbiturates Screen Not Detected (Not Detect) Ur Phencyclidine Scrn Not Detected (Not Detect) Ur Amphetamines Screen Not Detected (Not Detect) U Benzodiazepines Scrn Not Detected (Not Detect) Urine Cocaine Screen Not Detected (Not Detect) U Marijuana (THC) Screen POSITIVE H (Not Detect) Ethyl Alcohol < 10 mg/dL External Record Review External record reviewed: Inpatient record, Office record, Outpatient record, Prior outpatient labs, Prior outpatient radiology, Primary care record and Outside ED record Tests considered The following testing was considered but not selected: As above Chronic Conditions Patient?s care impacted by: Other Social Determinants Patient?s care significantly limited by Social Determinants of Health including: Inadequate housing, Low income, Alcoholism and drug addiction in family, Problems related to primary support group, Unemployment, Problems related to employment and Other Social Determinant of Health Discharge Plan Discharge Clinical Impression: Suicidal ideation, Depression Patient Disposition: Admitted As Inpatient Interventions: [place]-Suicide Risk Severity Scale Last Done: 08/15/24 17:24 Print Language: Danish
[2024-08-15 18:09] LABS: Amphetamine Screen Urine Not Detected (Not Detect); Barbiturates, Urine Not Detected (Not Detect); Benzodiazepines Screen Urine Not Detected (Not Detect); Buprenorphine Scr Not Detected (Not Detect); Cannabinoid Screen Urine POSITIVE (Not Detect); Cocaine Screen Urine Not Detected (Not Detect); Fentanyl, urine Not Detected (Not Detect); Methadone Screen, Urine Not Detected (Not Detect); Opiate Screen Urine Not Detected (Not Detect); Oxycodone Screen Urine Not Detected (Not Detect); Phencyclidine Screen Urine Not Detected (Not Detect)
[2024-08-15 18:21] LABS: Alanine Aminotransferase 13 U/L (0-31); Albumin Level 4.1 g/dL (3.5-5.0); Alkaline Phosphatase 74 U/L (39-117); Anion Gap 13 (12-20); Aspartate Amino Transferase 18 U/L (5-31); Bilirubin Total 0.5 mg/dL (0.0-1.0); Blood Urea Nitrogen 9 mg/dL (9-16); Calcium 9.5 mg/dL (8.4-10.2); Carbon Dioxide 25 mmol/L (22-29); Chloride 105 mmol/L (96-108); Creatinine Clr Calc Pharmacy 131.2; Estimated Glomerular Filt Rate > 60; Ethanol < 10 mg/dL; Glucose Random 95 mg/dL (60-115); Potassium 3.7 mmol/L (3.3-5.1); Sodium 139 mmol/L (135-145); Total Protein 7.8 g/dL (6.5-8.0)
--- NOTE | 2024-08-15 19:08 | PC.NURSE ---
patient appears to remain at rest presently respirations are even and unlabored patient appears in no distress.
--- NOTE | 2024-08-15 20:25 | PHA.MEDREC ---
Addendum entered by Sanjay Marquez [facility] 08/15/24 20:34: med rec reviewed Original Note: Pharmacy Consult ? Medication Reconciliation Pharmacy reviewed med rec done by nursing. Eliquis 5mg 1 BID was confirmed and a note from nurse sated Pt also reports that she has been out of her Eliquis for about 2 weeks now because no one will re-fill it and had Rx instructions read 10mg bid for 7 days then 5mg bid in patient claims we have an Eliquis 5mg tab filled 06/10 for 30 days stating Take 1 tablet by mouth 2 times a day for 7 weeks, stop after 07/29/2024. Keeping unconfirmed and letting provider know.
--- NOTE | 2024-08-15 20:41 | MHC.CARE ---
Patient was assessed by the CARE Team and found IPLOC. RN and attending provider made aware.
[2024-08-15] MEDS: Acetaminophen 325 MG TABLET 650 MG PO (21:12)
[2024-08-15 22:40] VITALS: BP 138/75; PULSE 60; RESP 16; TEMP 36.8; O2SAT 97
[2024-08-16] MEDS: traZODone HCL 50 MG TABLET PO (00:47)
[2024-08-16 01:54] VITALS: BMI 38.4
--- NOTE | 2024-08-16 01:54 | PC.ADMIT ---
Pt is a 43 yo female admitted to the unit after referral from CARE Team. Pt arrived on the unit from the ED POD @ 2238 on 08/15/2024. Pt signed a CV. Pt reports medical issues of asthma, migraine headaches, seasonal allergies. Reports that she has been diagnosed with sleep apnea, however she does not utilize the CPAP machine at home. Crisis eval reports a medical hx of kidney stones and ovarian cysts as well as DVT post surgeries. Pt had been taking Eliquis for 2.5 months and states that she last took on 07/29. Stated that she was told she no longer needed to take it. Pt reports allergies of chocolate/cocoa which causes anaphylaxis and oxycodone products which cause overall hives. Pt denies etoh use other than at holidays and denies substance use other than an occasional THC edible every couple weeks to month or so. Pt precipitant to admission is increasing stress d/t relationship issues and financial struggles d/t recent unemployment. Lives with her boyfriend of 4 years and her adult daughter and son who is in college. Pt went to court for restraining order against her bf (at the behest of her daughter and it was not granted) but regrets it and states that all she really wanted was a mediation type therapy with bf. Pt reports that her 5 years ago. Pt reports increasing depression and hopelessness with the family situation. Pt had meds that were prescribed for post surgery that were not used and was planning to take them and her daughter walked in and ultimately called [facility]. Pt presents in hospital [facility] and is disheveled, tearful and sad, wants to get help and stop feeling this way. Pt states that she has been trying for months to get into a therapist for her depression/SI feelings but was unable to obtain appointments. Pt presents with linear and clear thinking. Pt would like to be referred to an outpatient PCP as well as Psychiatrist for medication management and a medication regimen as well as a therapist. She states wants to be able be strong on her feet and be able to address her life situations in a productive way. Provider [employer] consultant notified of admission and orders obtained. Pt placed on 15 minute safety checks. Pt reports feeling safe in hospital.
[2024-08-16 07:37] VITALS: BP 128/68; PULSE 62; RESP 16; TEMP 36.8; O2SAT 98
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
[2024-08-16] MEDS: Sertraline HCL 25 MG TABLET PO (09:17)
[2024-08-16] MEDS: Apixaban 5 MG TABLET PO (09:17)
[2024-08-16 16:44] VITALS: BP 131/62
[2024-08-16] MEDS: cloNIDine HCL 0.1 MG TABLET 0.05 MG PO (16:44)
[2024-08-16] MEDS: Flu Vacc TS2024-25(6mos up)/PF 0.5 ML SYRINGE IM (16:45)
[2024-08-16 19:55] VITALS: BP 131/83; PULSE 67; RESP 16; TEMP 36.6; O2SAT 100
[2024-08-16] MEDS: Simethicone 80 MG TAB.CHEW PO (21:53)
[2024-08-16] MEDS: Melatonin 3 MG TABLET 9 MG PO (23:03)
[2024-08-16 23:04] VITALS: BP 109/73
[2024-08-16] MEDS: cloNIDine HCL 0.1 MG TABLET PO (23:04)
[2024-08-16] MEDS: Acetaminophen 325 MG TABLET 650 MG PO (23:05)
[2024-08-17] MEDS: Acetaminophen 325 MG TABLET 650 MG PO ×2 (07:17→22:04)
[2024-08-17 07:46] VITALS: BP 126/53; PULSE 60; RESP 16; TEMP 36.9; O2SAT 99
[2024-08-17] MEDS: cloNIDine HCL 0.1 MG TABLET 0.05 MG PO ×2 (08:16→14:54)
[2024-08-17] MEDS: Sertraline HCL 50 MG TABLET PO (08:17)
[2024-08-17 14:54] VITALS: BP 126/72
--- NOTE | 2024-08-17 17:05 | P.PNPSI_ITS ---
Subjective Subjective Date of Service: 08/17/24 Reason For Visit: SI Interim History: feeling well, less anxious, slept OK last night even with disruptive roommate. not sedated by clonidine. would like to remain at present dosing for now. per staff, tearful yesterday morning, demanding in the afternoon. wants D/C by sunday. slept 7 hours. Mental Status Exam Mental Status Exam Narrative: adequately dressed and groomed, cooperative, no PMA/PMR. speech incr rate, amount, nml loudness. nml tone, decr latency. thoughts digressive but largely linear.. affect hyper-intense, non-labile. mood improved. no SI/SIBI/HI/AVH expressed. Diagnostics Vital Signs (24Hr): Vital Signs - 24 hr 08/16/24 19:55 08/16/24 23:04 08/17/24 07:46 Temperature 97.9 F 98.5 F Pulse Rate 67 60 Respiratory Rate 16 16 Blood Pressure 131/83 109/73 126/53 L Pulse Oximetry 100 99 Oxygen Delivery Method Room Air Room Air 08/17/24 14:54 Temperature Pulse Rate Respiratory Rate Blood Pressure 126/72 Pulse Oximetry Oxygen Delivery Method BMI result Body Mass Index 38.4 Labs 08/15/24 17:30 08/15/24 17:30 Labs: Laboratory Results - last 48 hr 08/15/24 17:30 WBC 10.6 RBC 5.24 Hgb 12.4 Hct 37.9 MCV 72.3 L MCH 23.7 L MCHC 32.7 RDW 14.6 Plt Count 262 MPV 9.1 L Immature Gran % (Auto) 0.4 Neut % (Auto) 62.8 Lymph % (Auto) 27.5 [place] % (Auto) 8.7 Eos % (Auto) 0.4 Baso % (Auto) 0.2 Lymph # (Auto) 2.9 [place] # (Auto) 0.9 Eos # (Auto) 0.0 Baso # (Auto) 0.0 Abs Immat Gran (auto) 0.04 H Absolute Neuts (auto) 6.6 Absolute Nucleated RBC 0.000 Nucleated RBC % (auto) 0.0 Sodium 139 Potassium 3.7 Chloride 105 Carbon Dioxide 25 Anion Gap 13 BUN 9 Creatinine 0.68 Estim Creat Clear Calc 131.2 Estimated GFR > 60 Random Glucose 95 Calcium 9.5 Total Bilirubin 0.5 AST 18 ALT 13 Alkaline Phosphatase 74 Total Protein 7.8 Albumin 4.1 Urine Color Yellow Urine Appearance Cloudy Urine pH 6.5 Ur Specific [place] >= 1.030 H Urine Protein Trace Urine Glucose (UA) Negative Urine Ketones 80 Urine Blood Moderate (2+) H Urine Nitrite Negative Ur Leukocyte Esterase Moderate (2+) H Urine RBC >20 H Urine WBC 21-50 H Ur Squamous Epith Cells 11-20 Urine Bacteria 4+ Hyaline Casts 3-5 Urine Test NEGATIVE Urine Opiates Screen Not Detected Ur Buprenorphine Scrn Not Detected Ur Oxycodone Screen Not Detected Urine Methadone Screen Not Detected Urine Fentanyl Screen Not Detected Ur Barbiturates Screen Not Detected Ur Phencyclidine Scrn Not Detected Ur Amphetamines Screen Not Detected U Benzodiazepines Scrn Not Detected Urine Cocaine Screen Not Detected U Marijuana (THC) Screen POSITIVE H Ethyl Alcohol < 10 Medications Medications Current Medications Acetaminophen (Acetaminophen 325 Mg Tablet) 650 mg PO Q6H PRN PRN Reason: Headache/Pain Mild Scale (1-3) Last Admin: 08/17/24 07:17 Dose: 650 mg Al Hydroxide/Mg Hydroxide (Magnesium Hydrox/Alum Hydrox 30 Ml Oral.Susp) 30 ml PO Q6H PRN PRN Reason: Heartburn/Nausea Clonidine HCl (Clonidine Hcl 0.1 Mg Tablet) 0.05 mg PO BID@0900,1500 OC; Protocol Last Admin: 08/17/24 14:54 Dose: 0.05 mg Clonidine HCl (Clonidine Hcl 0.1 Mg Tablet) 0.1 mg PO BEDTIME [facility]; Protocol Last Admin: 08/16/24 23:04 Dose: 0.1 mg Hydroxyzine HCl (Hydroxyzine Hcl 25 Mg Tablet) 25 mg PO Q6H PRN PRN Reason: Anxiety Loperamide HCl (Loperamide Hcl 2 Mg Capsule) 2 mg PO Q4H PRN PRN Reason: Diarrhea Magnesium Hydroxide (Milk Of Magnesia 30 Ml Oral.Susp) 30 ml PO DAILY PRN PRN Reason: Constipation Melatonin (Melatonin 3 Mg Tablet) 9 mg PO BEDTIME PRN PRN Reason: insomnia Last Admin: 08/16/24 23:03 Dose: 9 mg Nicotine Polacrilex (Nicotine Polacrilex 2 Mg Gum) 4 mg BUCCAL Q2H PRN PRN Reason: Nicotine Cravings Sertraline HCl (Sertraline Hcl 50 Mg Tablet) 50 mg PO DAILY [facility] Last Admin: 08/17/24 08:17 Dose: 50 mg Simethicone (Simethicone 80 Mg Tab.Chew) 80 mg PO QIDWMHS PRN PRN Reason: flatulence Last Admin: 08/16/24 21:53 Dose: 80 mg Trazodone HCl (Trazodone Hcl 50 Mg Tablet) 50 mg PO BEDTIME MRX1 PRN PRN Reason: Insomnia Last Admin: 08/16/24 00:47 Dose: 50 mg Allergies Allergies Allergy/AdvReac Type Severity Reaction Status Date / Time oxycodone [OXYCODONE] Allergy Mild HIVES Verified 08/15/24 17:18 Chocolate AdvReac Severe Anaphylaxis Verified 08/16/24 01:53 cocoa AdvReac Severe Anaphylaxis Verified 08/16/24 01:53 Assessment & Plan Assessment & Plan (1) Chronic post-traumatic stress disorder (PTSD): Status: Acute Code(s): F43.12 - Post-traumatic stress disorder, chronic Plan 08/16: increase zoloft to 50 mg daily. start clonidine 0.05/0.05/0.1. imodium PRN. simethicone PRN. 08/17: less anxious, slept reasonably well. wants referrals and DC sunday. declines med changes. Reason for continued inpatient stay Substantial Risk for: harm to self and inability to function Time Spent With Patient Time: Total time managing care of this patient today ____ minutes.
[2024-08-17 19:05] VITALS: BP 117/56; PULSE 60; RESP 16; TEMP 36.9; O2SAT 100
[2024-08-17 22:05] VITALS: BP 131/80
[2024-08-17] MEDS: Melatonin 3 MG TABLET 9 MG PO (22:05)
[2024-08-17] MEDS: cloNIDine HCL 0.1 MG TABLET PO (22:05)
[2024-08-18 07:28] VITALS: BP 108/62; PULSE 72; RESP 18; TEMP 36.3; O2SAT 99
[2024-08-18 08:00] VITALS: BP 108/62; PULSE 72; RESP 18; TEMP 36.3; O2SAT 99
[2024-08-18 09:09] VITALS: BP 108/62
[2024-08-18] MEDS: cloNIDine HCL 0.1 MG TABLET 0.05 MG PO ×2 (09:09→16:16)
[2024-08-18] MEDS: Sertraline HCL 50 MG TABLET PO (09:10)
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
[2024-08-18 16:16] VITALS: BP 121/71
[2024-08-18 20:00] VITALS: BP 133/68; PULSE 66; RESP 16; TEMP 36.9; O2SAT 97
[2024-08-18 21:34] VITALS: BP 110/85
[2024-08-18] MEDS: cloNIDine HCL 0.1 MG TABLET PO (21:34)
[2024-08-18] MEDS: Melatonin 3 MG TABLET 9 MG PO (21:34)
[2024-08-19 08:43] VITALS: BP 127/71; PULSE 76; RESP 16; TEMP 36.9; O2SAT 100
[2024-08-19] MEDS: Sertraline HCL 50 MG TABLET PO (09:11)
[2024-08-19] MEDS: cloNIDine HCL 0.1 MG TABLET 0.05 MG PO (09:12)
== END 2024-08-19 10:30 | disposition home or self-care (01) | DRG 751 ==
LOC: HO.ED 20:02 → HO.PADLT16 20:04
PROVIDERS: Admitting Provider Psychiatry & Neurology Psychiatry; Emergency Provider Internal Medicine; Visit Provider Psychiatry & Neurology Psychiatry
DX: F32.9 Major depressive disorder, single episode, unspecified (principal); R45.851 Suicidal ideations; F43.12 Post-traumatic stress disorder, chronic; F17.210 Nicotine dependence, cigarettes, uncomplicated; Z71.6 Tobacco abuse counseling; Z23 Encounter for immunization; Z56.0 Unemployment, unspecified; Z63.0 Problems in relationship with spouse or partner; Z79.899 Other long term (current) drug therapy
CPT/HCPCS: 36415; 80053; 80307; 81001; 81025; 85025; 87086; 90656; 99285; S9485

== ENCOUNTER → 2024-08-15 19:44 | Outpatient (BNV) | payer OTHER, SELFPAY | PROVIDERS: Admitting Provider Psychiatry & Neurology Psychiatry; Emergency Provider Internal Medicine; Visit Provider Psychiatry & Neurology Psychiatry | DX: F43.12 Post-traumatic stress disorder, chronic (principal) | CPT/HCPCS: 99231; 99233 ==

== ENCOUNTER 2024-12-09 12:01 | Outpatient (RCR) | payer OTHER, SELFPAY | END 2024-12-09 23:59 | disposition home or self-care (01) | LOC: HO.PHPA 12:01 | PROVIDERS: Visit Provider Psychiatry & Neurology Psychiatry | DX: F43.12 Post-traumatic stress disorder, chronic (principal); F33.2 Major depressive disorder, recurrent severe without psychotic features; F41.1 Generalized anxiety disorder | CPT/HCPCS: 90791 ==

== ENCOUNTER 2024-12-30 12:30 | Outpatient (RCR) | payer OTHER, SELFPAY ==
[2024-12-16 12:22] VITALS: BMI 41.7
[2024-12-16 12:23] VITALS: BP 110/64; PULSE 72; TEMP 37
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
--- NOTE | 2024-12-18 15:35 | HO.PHP ---
Client's case was opened and reviewed in teams today.
--- NOTE | 2024-12-19 08:20 | HO.PHP ---
PHP admin, Aleshia, informed the team that Ashley will not be in attendance to program today due to being in pain from a procedure she had on her mouth and being swollen. Ashley reported no safety concerns and will be here on Sunday.
--- NOTE | 2024-12-26 12:50 | PM.EVENT ---
Event Note Date of Service: 12/26/24 Event Note: Patient was scheduled to meet today for psychiatric follow-up but called out today. Time Spent With Patient Time: Total time managing care of this patient today __5__ minutes.
--- NOTE | 2024-12-30 12:58 | HO.PHPPROGNO ---
Subjective Subjective Date of Service: 12/30/24 Reason For Visit: depression,anxiety Diagnostics Vital Signs (24Hr): BMI result Body Mass Index 41.7 Assessment & Plan Certification I certify that partial hospital treatment is medically necessary due to the symptoms and problems resulting from the patient's mental illness and the failure to treat the patient at the partial hospital level of care would likely result in the patient requiring inpatient psychiatric care which could not be prevented at a less intensive level of care. Total time managing care of this patient today ____ minutes. Discharge Plan Discharge Attending provider: Madeline Lino Medications: Continued hydroxyzine pamoate 50 mg capsule 50 mg PO BID PRN (Reason: anxiety) Qty: 60 0RF sertraline 100 mg tablet 100 mg PO DAILY Qty: 30 0RF Changed lamotrigine 100 mg tablet 100 mg PO BID Qty: 60 0RF clonidine HCl 0.1 mg tablet 0.2 mg PO BEDTIME Qty: 30 0RF Protocol: Hold for SBP< HOLD for SBP < : 90 Rx Instructions: Take 2 tabs at bedtime. Patient Education: Depression (ED), Depression (DC), Anxiety (ED) Print Language: B[place]an
== END 2024-12-30 23:59 | disposition home or self-care (01) ==
LOC: HO.PHPA 12:30
PROVIDERS: Visit Provider Psychiatry & Neurology Psychiatry
DX: F43.12 Post-traumatic stress disorder, chronic (principal); F33.9 Major depressive disorder, recurrent, unspecified; F41.1 Generalized anxiety disorder; Z79.899 Other long term (current) drug therapy
CPT/HCPCS: 90791; 90853

== ENCOUNTER 2025-01-21 09:36 | Emergency (ER) | payer OTHER, SELFPAY ==
--- NOTE | ~2025-01-21 | XR_ITS ---
EXAMINATION: XR HAND 3 OR MORE VIEWS LEFT HISTORY: pain, injury COMPARISON: There are no prior studies available for comparison. FINDINGS: Three views of the left hand are submitted. Osseous mineralization is normal. There is no fracture or dislocation. 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 The remaining joint spaces are maintained. The soft tissues are unremarkable. XR/XR hand LT min 3V IMPRESSION: No evidence of fracture of the left hand. Electronically signed by: Nick Lagunas MD 01/21/2025 10:21 AM EDT
--- NOTE | 2025-01-21 09:41 | ED_ITS ---
History of Present Illness General Stated Complaint: Fall - hand injury Source: patient Mode of arrival: ambulatory Limitations: no limitations History of Present Illness HPI Narrative: This is a 44 years old female patient with a history of depression, PTSD presented to the emergency department complaining of bilateral epistaxis since yesterday Location: Yes bilateral nares Onset/current episode: Yes day(s) (1) Duration: Yes intermittent Treatment prior to arrival: Yes none Related Data Previous Rx's ?Medication ?Instructions ?Recorded clonidine HCl 0.1 mg tablet 0.2 mg PO BEDTIME #30 tabs 12/30/24 hydroxyzine pamoate 50 mg capsule 50 mg PO BID PRN anxiety #60 caps 12/30/24 lamotrigine 100 mg tablet 100 mg PO BID #60 tabs 12/30/24 sertraline 100 mg tablet 100 mg PO DAILY #30 tabs 12/30/24 Allergies Allergy/AdvReac Type Severity Reaction Status Date / Time oxycodone [OXYCODONE] Allergy Mild HIVES Verified 08/15/24 17:18 Chocolate AdvReac Severe Anaphylaxis Verified 08/16/24 01:53 cocoa AdvReac Severe Anaphylaxis Verified 08/16/24 01:53 Review of Systems Constitutional: Constitutional: Reports no additional constitutional complaints ENT: Reports system reviewed and no additional complaints, except as documented Gastrointestinal: Gastrointestinal: Reports no additional gastrointestinal complaints PMFSH Past Medical History Medical History (Updated 12/17/24 @ 03:51 by Madeline Lino MD) Arthritis Eczema Asthma Sleep apnea Ovarian cyst Kidney stone Surgical History (Updated 12/16/24 @ 12:20 by Ronit Eng RN) History of cholecystectomy H/O lumpectomy Previous section Social History Social History Household Members: Children Household Members Other:: 2 adult children Housing: Apartment Do you presently have visiting nurse or other home services: No Alcohol intake: current Alcohol intake frequency: holidays/special occasions only Patient Tobacco Use Status: Current everyday Tobacco user Tobacco use type: Cigarette Cigarettes Per Day: 4 Years Smoked: 6 Second Hand Smoke Exposure: No Substance Use Type: Marijuana service: No Sexual orientation: Straight/Heterosexual Physical Exam Vital Signs: Patient looks well not toxic appearing no distress Const: General: cooperative Nutritional Appearance: well nourished Orientation/consciousness: patient oriented x3 Limitations: no limitations HEENT: Head: Yes normal to inspection General nose exam: Other nasal findings present (No bleeding noted now) Neck: Neck: Yes normal visual inspection Chest: Chest palpation & inspection: normal inspection of the chest Resp: Effort & Inspection: normal respiratory effort Cardio: Jugular venous distension: no JVD Rate: regular rate Rhythm: regular rhythm GI: Inspection: Yes normal to inspection Palpation (GI): Soft to palpation, not firm and nontender Skin: General skin exam: no rashes or lesions noted Lesions: no lesions Rashes: no rashes Neuro: General: patient oriented x3 Medical Decision Making Medical Decision Making [facility] Narrative: Patient presented with bilateral epistaxis bleeding resolved now we will check labs Differential Diagnosis Differential Diagnoses: The differential diagnosis associated with the presentation includes Thrombocytopenia/coagulopathy/URI Discharge Plan Discharge Prescriptions: No Action lamotrigine 100 mg tablet 100 mg PO BID Qty: 60 0RF clonidine HCl 0.1 mg tablet 0.2 mg PO BEDTIME Qty: 30 0RF Protocol: Hold for SBP< HOLD for SBP < : 90 Rx Instructions: Take 2 tabs at bedtime. hydroxyzine pamoate 50 mg capsule 50 mg PO BID PRN (Reason: anxiety) Qty: 60 0RF sertraline 100 mg tablet 100 mg PO DAILY Qty: 30 0RF Print Language: Turkish
[2025-01-21 09:44] VITALS: BP 128/87; PULSE 90; RESP 19; TEMP 36.6; O2SAT 98; BMI 37.9
--- NOTE | 2025-01-21 10:03 | ED_ITS ---
HPI - Extremity Problem General Chief complaint: Extremity Injury, Upper Stated complaint: Fall - hand injury Time Seen by Provider: 01/21/25 09:52 Source: patient Mode of arrival: ambulatory Limitations: no limitations History of Present Illness ED Provider: Natali Jones PA-C HPI Narrative: Patient is a 44 year old assigned female at with a history of arthritis in bilateral knees, asthma, eczema, kidney stones, sleep apnea, and ovarian cysts, MDD, PTSD, and LENNIE presenting to the emergency department today with left 4th finger pain. Patient is left hand dominant. Patient states that she was out walking the dog when she tripped over an uneven sidewalk in [place] and landed on her 4th finger - causing significant pain. Patient states that she cannot flex the finger. Patient denies any head strike, loss of consciousness, dizziness, lightheadedness, abdominal pain, nausea, vomiting, fever, chills, blurry vision, double vision, loss of vision, chest pain, difficulty breathing, shortness of breath, back pain, night sweats, pain with urination, increased urinary frequency, increased urinary urgency, blood in her urine or stool, syncope or a near syncopal episode, bowel incontinence, bladder incontinence, or any other complaints at this time. Onset (ago): minute(s) Location: left (4th finger) Relieving factors: immobilization Exacerbating factors: range of motion Associated symptoms: denies other symptoms Related Data Previous Rx's ?Medication ?Instructions ?Recorded clonidine HCl 0.1 mg tablet 0.2 mg PO BEDTIME #30 tabs 12/30/24 hydroxyzine pamoate 50 mg capsule 50 mg PO BID PRN anxiety #60 caps 12/30/24 lamotrigine 100 mg tablet 100 mg PO BID #60 tabs 12/30/24 sertraline 100 mg tablet 100 mg PO DAILY #30 tabs 12/30/24 Allergies Allergy/AdvReac Type Severity Reaction Status Date / Time oxycodone [OXYCODONE] Allergy Mild HIVES Verified 01/21/25 09:47 Opioids - Morphine Analogues Allergy Hives Verified 01/21/25 09:47 Opioids-Meperidine and Allergy Hives Verified 01/21/25 09:47 Related Opioids-Methadone and Related Allergy Hives Verified 01/21/25 09:47 Chocolate AdvReac Severe Anaphylaxis Verified 01/21/25 09:47 cocoa AdvReac Severe Anaphylaxis Verified 01/21/25 09:47 Review of Systems Constitutional: Constitutional: Reports no additional constitutional complaints, Denies chills, Denies fever(s) and Denies night sweats Eyes: Eyes: Reports no additional eye complaints, Denies blurry vision, Denies change in vision, Denies diplopia, Denies eye discharge, Denies loss of vision and Denies eye pain ENT: Denies dizziness Cardiovascular: Cardiovascular: Reports no additional cardiovascular complaints, Denies chest pain, Denies lightheadedness, Denies Loss of Consciousness and Denies dyspnea Respiratory: Respiratory: Reports no additional respiratory complaints and Denies dyspnea Gastrointestinal: Gastrointestinal: Reports no additional gastrointestinal complaints, Denies abdominal pain, Denies melena, Denies hematochezia, Denies change in bowel habits and Denies change in stool character Genitourinary: Genitourinary: Denies hematuria, Denies urinary frequency, Denies dysuria, Denies urinary incontinence, Denies urinary hesitancy and Denies urinary urgency Musculoskeletal: Musculoskeletal: Reports no additional musculoskeletal complaints, Denies numbness and Denies tingling Comments: left 4th finger pain unable to flex left 4th finger Neurologic: Denies dizziness, Denies loss of vision, Denies numbness and Denies tingling Psychiatric: Psychiatric: Reports no additional psychiatric complaints Endocrine: Endocrine: Reports no additional endocrine complaints Hematologic/Lymphatic: Hematologic/Lymphatic: Reports no additional hematologic/lymphatic complaints Allergic/Immunologic: Allergic/Immunologic: Reports no additional allergic/immunologic complaints PMF Past Medical History Attestation statement: The following information was validated with the patient. Source: old records reviewed and nursing notes reviewed Medical History Arthritis Eczema Asthma Sleep apnea Ovarian cyst Kidney stone Surgical History History of cholecystectomy H/O lumpectomy Previous section Social History Social History Household Members: Children Household Members Other:: 2 adult children Housing: Apartment Do you presently have visiting nurse or other home services: No Alcohol intake: current Alcohol intake frequency: holidays/special occasions only Patient Tobacco Use Status: Current everyday Tobacco user Tobacco use type: Cigarette Cigarettes Per Day: 4 Years Smoked: 6 Second Hand Smoke Exposure: No Substance Use Type: Marijuana Advance Directives: No Advance Directives Information Provided: Yes Do you have a plan to hurt others: No Plan service: No Sexual orientation: Straight/Heterosexual Physical Exam Vital Signs: Vital Signs: Last Vital Signs Temp 98 F 01/21/25 09:44 Pulse 90 01/21/25 09:44 Resp 19 01/21/25 09:44 BP 128/87 01/21/25 09:44 Pulse Ox 98 01/21/25 09:44 O2 Del Method Room Air 01/21/25 09:44 BMI result Body Mass Index 37.9 Const: General: cooperative, no acute distress, alert and awake Nutritional Appearance: well nourished Orientation/consciousness: patient oriented x3 Limitations: no limitations HEENT: Head: Yes normal to inspection and Yes atraumatic Ears: hearing grossly normal bilaterally and external ears normal General nose exam: Normal external nose present, no nasal discharge noted and no epistaxis Face and sinus: Yes normal facial exam, No abrasion and No laceration Mouth: Normal oral and palatal mucosa present, no drooling and no muffled voice Eyes: General: appearance normal, both eyes and all related structures Periorbital: periorbital findings normal Eyelids: Yes eyelids normal Conju nctivae: conjunctivae normal Pupils: Equal, round and reactive pupils present EOM: EOMs intact bilaterally Neck: Neck: Yes normal visual inspection, Yes full ROM and Yes no lymphadenopathy Chest: Chest palpation & inspection: normal inspection of the chest Resp: Effort & Inspection: normal respiratory effort and able to speak in complete sentences GI: Inspection: Yes normal to inspection Neuro: General: patient oriented x3, moves all extremities and CN's II-XI intact bilaterally Cranial nerves: Yes Equal, round and reactive pupils present Cognition (Neuro): normal cognition Extrem: Other: dorsal and palmar swelling present to the left 4th digit pain with palpation of the dorsal and palmar aspect of the left 4th digit inability to actively flex the left 4th finger passive flexion possible with significantp ain and active extension General: Yes capillary refill normal Psych: Appearance: grossly normal Mental Status: mental status grossly normal Affect: normal affect Attitude: cooperative Thought process: Normal thought process present Thought content: Normal thought content present Insight: Good insight present (Psych) Medical Decision Making Medical Decision Making MDM Narrative: Patient is a 44 year old assigned female at with a history of arthritis in bilateral knees, asthma, eczema, kidney stones, sleep apnea, and ovarian cysts, MDD, PTSD, and LENNIE presenting to the emergency department today with left 4th finger pain. Patient is left hand dominant. Patient's physical exam was as noted in the physical exam portion of this note. Patient's left hand x-ray showed no acute process. I spoke with the orthopedic team who recommended splinting the finger and having the patient follow up. Patient's clinical presentation is most consistent with a flexor tendon injury. I explained my physical exam findings as well as all test results to the patient. I answered all questions asked by the patient. Patient's left 4th digit was splinted, without incident. Patient's PMS was intact prior to and after splint placement. I stressed the importance of the patient taking her medication as directed (either prescribed or as the over the counter packaging recommends). I stressed the importance of the patient following up with her primary care provider and the orthopedic team. I stressed the importance of the patient returning to the emergency department immediately if her symptoms were to worsen or if she were to develop any dizziness, shortness of breath, difficulty breathing, chest pain, blurry vision, loss of vision, nausea, vomiting, abdominal pain, fever, chills, back pain, or any other complaints. Patient verbalized agreement and understanding with this treatment plan and discharge. Differential Diagnosis Differential Diagnoses: The differential diagnosis associated with the presentation includes Flexor tendon injury Finger sprain Finger strain Finger fracture Admission/Observation Consideration of admission/observation: Escalation of care including admission/observation considered Patient would have been admitted to the hospital had her work up had any findings where hospital admission was appropriate and her clinical presentation warranted hospital admission. Consult Healthcare Provider Management of the patient was discussed with: Sports Journalist (spoke with the orthopedic team as noted in the MDM Rationale portion of this note. ) Independent Interpretation I performed an independent interpretation of an: Plain X-Ray Interpretation: My interpretation is in agreement with the radiologist's impression of this imaging study. EXAMINATION: XR HAND 3 OR MORE VIEWS LEFT HISTORY: pain, injury COMPARISON: There are no prior studies available for comparison. FINDINGS: Three views of the left hand are submitted. Osseous mineralization is normal. There is no fracture or dislocation. 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 The remaining joint spaces are maintained. The soft tissues are unremarkable. XR/XR hand LT min 3V IMPRESSION: No evidence of fracture of the left hand. Electronically signed by: Nick Lagunas MD 01/21/2025 10:21 AM EDT RP Dictated By: Nick Lagunas MD Signed By: Electronically signed by Nick Lagunas MD 01/21/25 1021 Radiology Impression Discussion of test interpretation with radiology: I have reviewed the radiologist's reading. Procedures Orthopedic Splinting/Casting Injury #1: Side: left Upper Extremity Injury Location: finger (4th) Upper Extremity Immobilizer: finger (other) Critical Care Time Critical Care Time Critical Care Time: Yes Total Critical Care Time: 34 Attestation: I spent 34 minutes of Critical Care Time with this patient. This does not include time spent on separately reported billable procedures. Discharge Plan Discharge Clinical Impression: Injury of hand, flexor tendon, Finger sprain Patient Disposition: Home, Self-Care Instructions: Tendon Rupture (ED), Finger Sprain (ED) Additional Instructions: Do NOT get your splint wet. Do NOT remove your splint. If you have any change in sensation, movement, or color of your left 4th finger tip - you may loosen the outer wrap. If you find yourself loosening the wrap to the point of seeing the white splint material underneath - STOP and proceed to your closest Emergency Department, immediately. Follow up with your primary care provider and the orthopedic team. Return to the emergency department immediately if your symptoms worsen or if you develop any numbness, tingling, dizziness, shortness of breath, difficulty breathing, chest pain, blurry vision, loss of vision, nausea, vomiting, abdominal pain, fever, chills, back pain, or any other complaints. Please see the information below about our Patient Portal. If you are not yet enrolled in the [facility] Patient Portal, you will receive an enrollment email invitation following your visit to any [facility] setting. You may also self-enroll in the Patient Portal by visiting our website: [email or web address] The following information is required to access the Patient Portal: - Your [facility] Medical Record Number - Your personal home email address (must match what is in your electronic medical record, Registration staff can assist with this) - Name - Date of Capabilities of the Patient Portal: - Message some providers - View upcoming appointments - Access your health summary, medical history, and visit history - View current conditions and allergies - View procedure and lab results - View your medications, including guidelines, side effects, and precautions - Complete pre-appointment questionnaires requested by your provider - Ready summary reports of your office visits and procedures To access the Patient Portal Mobile Angelina, follow these directions: - Search [email or web address] in the Angelina Store or [email or web address] Store - Download the Angelina - Search for [facility] - Enter your login/password Prescriptions: No Action lamotrigine 100 mg tablet 100 mg PO BID Qty: 60 0RF clonidine HCl 0.1 mg tablet 0.2 mg PO BEDTIME Qty: 30 0RF Protocol: Hold for SBP< HOLD for SBP < : 90 Rx Instructions: Take 2 tabs at bedtime. hydroxyzine pamoate 50 mg capsule 50 mg PO BID PRN (Reason: anxiety) Qty: 60 0RF sertraline 100 mg tablet 100 mg PO DAILY Qty: 30 0RF Referrals: [facility] Family Medicine [Provider Group] (Call to establish and follow up with a primary care provider. If you already have a primary care provider, please follow up with them.) [facility] Primary [facility] [Provider Group] (Call to establish and follow up with a primary care provider. If you already have a primary care provider, please follow up with them.) [facility] Primary [facility] [Provider Group] (Call to establish and follow up with a primary care provider. If you already have a primary care provider, please follow up with them.) [facility] Primary Care, [facility] [Provider Group] (Call to establish and follow up with a primary care provider. If you already have a primary care provider, please follow up with them.) [facility] Primary [facility] [Provider Group] (Call to establish and follow up with a primary care provider. If you already have a primary care provider, please follow up with them.) [facility] Orthopedic Surgeons [Provider Group] (Call to establish and follow up with the orthopedic team. ) Print Language: Icelandic
[2025-01-21 11:39] VITALS: BP 110/66; PULSE 68; RESP 16; TEMP 36.9; O2SAT 100
[2025-01-21 11:50] VITALS: BP 110/66; PULSE 68; RESP 18; TEMP 36.9; O2SAT 100
== END 2025-01-21 11:51 | disposition home or self-care (01) ==
PROVIDERS: Emergency Provider Emergency Medicine
DX: S66.195A Other injury of flexor muscle, fascia and tendon of left ring finger at wrist and hand level, initial encounter (principal); W01.0XXA Fall on same level from slipping, tripping and stumbling without subsequent striking against object, initial encounter; F17.210 Nicotine dependence, cigarettes, uncomplicated; Y93.K1 Activity, walking an animal; Y92.480 Sidewalk as the place of occurrence of the external cause; Y99.9 Unspecified external cause status
CPT/HCPCS: 29130; 73130; 99283; 99284

== ENCOUNTER → 2025-01-21 09:51 | Outpatient (BNV) | payer OTHER, SELFPAY | PROVIDERS: Visit Provider Radiology Diagnostic Radiology | DX: M79.642 Pain in left hand (principal) | CPT/HCPCS: 73130 ==

== ENCOUNTER 2025-01-27 10:00 | Outpatient (REF) | payer OTHER, SELFPAY ==
--- NOTE | ~2025-01-27 | XR_ITS ---
CLINICAL HISTORY: M79.642 - Pain in left hand --- Additional Notes or Special Instructions: Attention good lateral of the ring finger Exam: AP, lateral, and oblique views of the left hand. Comparison: January 21, 2025. Findings: There is 2 mm of ulnar negative variance. Bony alignment is otherwise anatomic. No sclerosis within the lunate to suggest avascular necrosis. No fracture or periosteal reaction. Joint spaces are well preserved. Impression: No acute finding. This document has been electronically signed by: Frandy Beltre MD on 01/28/2025 06:57:35
== END 2025-01-27 10:01 | disposition home or self-care (01) ==
LOC: HO.HOSX 10:00
DX: S63.615A Unspecified sprain of left ring finger, initial encounter (principal); M79.642 Pain in left hand; F33.9 Major depressive disorder, recurrent, unspecified; F41.1 Generalized anxiety disorder
CPT/HCPCS: 73130; 99202

== ENCOUNTER 2025-01-27 10:00 | Outpatient (AMB) | payer OTHER, SELFPAY ==
--- NOTE | 2025-01-27 10:13 | MHC.OFFVIS ---
Vital Signs 01/27/25 10:16 Height 5 ft 7 in Weight 242 lb BMI 37.9 Intake Visit Reasons: ED f/u-LT hand flexor tendon injury Intake Note: Ashley 44 yr old left hand dominant female presents today with her boyfriend Sunil for her fracture care visit [facility] [place]. Patient states that she was out walking the dog when she tripped over an uneven sidewalk in [place] and landed on her 4th finger - causing significant pain. Seen in ED same here where xrays were taken, splinted and referred to Dr Lawrence. Currently states she has numbness, tingling, burning sensation and throbbing pain. Allergies oxycodone [OXYCODONE] Allergy (Mild, Verified 01/27/25 10:17) HIVES Opioids - Morphine Analogues Allergy (Verified 01/27/25 10:17) Hives Opioids-Meperidine and Related Allergy (Verified 01/27/25 10:17) Hives Opioids-Methadone and Related Allergy (Verified 01/27/25 10:17) Hives Chocolate Adverse Reaction (Severe, Verified 01/27/25 10:17) Anaphylaxis cocoa Adverse Reaction (Severe, Verified 01/27/25 10:17) Anaphylaxis HPI HPI ED f/u-LT hand flexor tendon injury: Details: Ashley is a 44 year old left hand dominant woman who presents for a left ring finger injury, S/P fall, DOI: 01/21/25. She tripped while walking her dog and fell onto her hand, injuring her ring finger. She was seen in the ED the same day and placed in a splint. She is seen today with her boyfriend. She complains of a burning & throbbing pain in her ring finger, along with swelling. She was seen wearing a splint that extended from the tip of her finger to her mid-palm She has a Hx of LENNIE, MDD, & PTSD. [facility] Medical History Arthritis Eczema Asthma Sleep apnea Ovarian cyst Kidney stone Surgical History History of cholecystectomy H/O lumpectomy Previous section Social History (Updated 01/27/25 @ 10:17 by Anny Cigaran, CCMA) Household Members: Children Household Members Other:: 2 adult children Housing: Apartment Do you presently have visiting nurse or other home services: No Alcohol intake: current Alcohol intake frequency: holidays/special occasions only Patient Tobacco Use Status: Current everyday Tobacco user Tobacco use type: Cigarette Cigarettes Per Day: 4 Years Smoked: 6 Second Hand Smoke Exposure: No Substance Use Type: Marijuana service: No Current occupational status: employed Current occupation: left hand Sexual orientation: Straight/Heterosexual Review of Systems Const All systems reviewed & are unremarkable except as noted in HPI and below Physical Exam Vital Signs: BMI result Body Mass Index 37.9 Const General: cooperative, healthy appearing and no acute distress Orientation/consciousness: patient oriented x3 HEENT Head: Yes normocephalic and Yes atraumatic Eyes EOM: EOMs intact bilaterally Resp Effort & Inspection: normal respiratory effort and able to speak in complete sentences Cardio Jugular venous distension: no JVD Skin General skin exam: turgor normal Rashes: no rashes Neuro General: patient oriented x3 Extrem Other: Evaluation of Left Upper Extremity: The patient is alert, oriented, and in no acute distress Neuro: Median, Ulnar, Radial nerves motor and sensory intact and sensation is normal to the tips of all digits Vascular: Cap refill brisk ROM: With encouragement she could demonstrate some flexion at the ring finger PIP & DIP joints, ~20-30 degrees, limited by pain Full active extension of the ring finger Full active flexion and extension of all other digits We worked on ROM exercises today in clinic, before leaving she could bring all her fingers closed to a fist and back into extension Skin: No lacerations or abrasions. General: No Erythema or evidence of infection. Tender along the entire length of the ring finger proximal phalanx & at PIP joint Some ecchymosis dorsal aspect of the PIP joint, and some, but less, ecchymosis at the volar aspect of the pip joint Mild swelling Mild tenderness to the small finger It appears she had a tight bandage wrapped around the middle proximal phalanx, she was wearing a finger splint extending from mid-palm to the tip of the ring finger Radiographs: 3 views of the left hand were taken today, viewed, and compared to radiographs from 01/21/25. They show no fractures or dislocations. Psych Appearance: grossly normal Affect: normal affect Attitude: cooperative Assessment & Plan Assessment & Plan (1) Sprain of left ring finger: Code(s): S63.615A - Unspecified sprain of left ring finger, initial encounter Category: Medical (2) LENNIE (generalized anxiety disorder): Code(s): F41.1 - Generalized anxiety disorder Category: Medical (3) MDD (major depressive disorder), recurrent episode: Code(s): F33.9 - Major depressive disorder, recurrent, unspecified Category: Medical Plan Assessment & Plan: 1. Left ring finger sprain From a fall, DOI: 01/21/25 I educated her about this condition I discussed non-operative treatment options I recommend Albert-taping & activity modification, and she is in agreement Her ring & middle fingers were Albert-taped together, to be worn for the next 2 weeks. She can remove this to shower I discussed activity modification, she is to use her hand for lightweight activities only for the next 3 weeks. She should avoid any falls or impact activities I discussed the importance of ROM exercises, she will work on these daily at home She will follow up prn, no X-rays unless she has a new injury. Scribed for Vida Lawrence MD by Jimmie Headley, medical art therapist, on 01/27/25 at 10:25 AM, EST. Orders: Orders XR hand LT min 3V Today M79.642 - Pain in left hand Coding Level of Care Code New Pt Level 3 (16557) Diagnoses Sprain of left ring finger S63.615A LENNIE (generalized anxiety disorder) F41.1 MDD (major depressive disorder), recurrent episode F33.9
[2025-01-27 10:16] VITALS: BMI 37.9
== END 2025-01-27 11:07 | disposition home or self-care (01) ==
LOC: HO.HOS 10:01
DX: S63.615A Unspecified sprain of left ring finger, initial encounter (principal); F41.1 Generalized anxiety disorder; F33.9 Major depressive disorder, recurrent, unspecified
CPT/HCPCS: 99203

== ENCOUNTER → 2025-01-27 10:33 | Outpatient (BNV) | payer OTHER, SELFPAY | PROVIDERS: Visit Provider Radiology Diagnostic Radiology | DX: M79.642 Pain in left hand (principal) | CPT/HCPCS: 73130 ==

== ENCOUNTER 2025-02-04 09:08 | Outpatient (RCR) | payer OTHER, SELFPAY ==
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
== END 2025-02-04 23:59 | disposition home or self-care (01) ==
LOC: HO.PHPA 09:08
PROVIDERS: Visit Provider Psychiatry & Neurology Psychiatry
DX: F43.12 Post-traumatic stress disorder, chronic (principal); F33.2 Major depressive disorder, recurrent severe without psychotic features; F41.1 Generalized anxiety disorder
CPT/HCPCS: 90791

== ENCOUNTER 2025-02-13 12:15 | Outpatient (RCR) | payer OTHER, SELFPAY ==
[2025-02-10 09:34] VITALS: BMI 43.1
[2025-02-10 09:35] VITALS: BP 121/90; PULSE 100; TEMP 36.8
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
--- NOTE | 2025-02-12 12:58 | HO.PHPPROGNO ---
Subjective Subjective Date of Service: 02/12/25 Reason For Visit: MDD Healthcare Proxy: No Guardianship: No Medical Problems Affecting Mental Status: No Interim History: 44 yo who feels like she is managing things better with inc sertraline to 150mg (pt had not known dose so.... I was unaware it was already that high_ ) I am wondering if patient is more verbal/pressured- but presenting that managing better- reports sleep ok - Difficult conversation with kids around 's summer place unavailable to them this summer as patient was not up to dealing with it - and feels managed it better than would have- denies current si Medication Compliance: Yes Side effects from medications: No Attending Groups: Yes Review of Systems Acute medical concerns: No Medical Review of Systems: unchanged Mental Status Exam Mental Status Exam Patient Appearance: Well Grooomed (more kempt than initial) and Appropriate Patient Orientation: Person, Place, Time and Situation Level of Consciousness: Awake and Alert Patient Behavior: Appropriate, Talkative and Cooperative Mood Description: Anxious Affect Description: Appropriate Patient Cognition Impaired: No Ability to Follow Directions: Good Speech Pattern: Clear Hallucinations: None Delusions: Not Present Perceptual Disturbances: Depersonalization Thought Process: Racing Thought Content: positive for Goal Oriented and positive for Tangential Depressive Symptoms: Feelings of Guilt Judgement: Good Diagnostics Vital Signs (24Hr): BMI result Body Mass Index 43.1 Assessment & Plan Assessment & Plan (1) Chronic post-traumatic stress disorder (PTSD): Status: Acute Code(s): F43.12 - Post-traumatic stress disorder, chronic (2) MDD (major depressive disorder), recurrent episode: Status: Acute Code(s): F33.9 - Major depressive disorder, recurrent, unspecified Plan watch for activation - ctp sent in higher sertraline- Patient educated on: medication risk/benefits and therapeutic strategies Informed Consent: understands Reason for contiued partial hosp. stay Substantial Risk for: rapid decompensation Certification I certify that partial hospital treatment is medically necessary due to the symptoms and problems resulting from the patient's mental illness and the failure to treat the patient at the partial hospital level of care would likely result in the patient requiring inpatient psychiatric care which could not be prevented at a less intensive level of care. Total time managing care of this patient today ____ minutes. Discharge Plan Discharge Attending provider: Patenaude,Madeline Additional Instructions: 03/09 will see Niraj her prescriber Medications: New sertraline 100 mg tablet 150 mg PO DAILY 30 Days Qty: 45 0RF Continued diclofenac sodium 1 % gel See Rx Instructions .ROUTE .COMPLEX Rx Instructions: Apply to affected area four times a day. clonidine HCl 0.1 mg tablet 0.2 mg PO BEDTIME Qty: 30 0RF Protocol: Hold for SBP< HOLD for SBP < : 90 Rx Instructions: Take 2 tabs at bedtime. hydroxyzine pamoate 50 mg capsule 50 mg PO BID PRN (Reason: anxiety) Qty: 60 0RF lamotrigine 100 mg tablet 100 mg PO BID Qty: 60 0RF Discontinued sertraline 100 mg tablet 100 mg PO DAILY Qty: 30 0RF Print Language: Taiwanese
--- NOTE | 2025-02-19 08:05 | PC.NURSE ---
Addendum entered by Ronit Eng RN 02/19/25 09:35: Reviewed aformentioned information with Dr. Lino. Patient to decrease Sertraline back to 50 mg daily. I called patient and left her a message with information to reduce dose of Sertraline back to 50 mg daily. I also asked patient to call me back. Awaiting call back. Original Note: Ashley called out of the program today as she is not feeling well. Reports she has a migraine. Reports she has a history of migraines. She also reports constipation x three days. Stated she is going to call her PCP to see if she can have something for the constipation. Patient also reports she had an increase in Sertraline from 50 mg to 100 mg.
--- NOTE | 2025-02-19 08:15 | HO.PHP ---
Clinician called the patient to discuss the discharge due to three days of absences in a row and left a VM requesting a call back.
--- NOTE | 2025-02-19 14:58 | HO.PHP ---
This case was opened and reviewed on treatment teams.
== END 2025-02-13 23:59 | disposition home or self-care (01) ==
LOC: HO.PHPA 12:15
PROVIDERS: Visit Provider Psychiatry & Neurology Psychiatry
DX: F33.9 Major depressive disorder, recurrent, unspecified (principal); F43.12 Post-traumatic stress disorder, chronic
CPT/HCPCS: 90791; 90853

== ENCOUNTER → 2025-03-04 11:15 | Outpatient (BNV) | payer OTHER, SELFPAY | PROVIDERS: Visit Provider Psychiatry & Neurology Psychiatry | DX: F33.2 Major depressive disorder, recurrent severe without psychotic features (principal); F41.1 Generalized anxiety disorder; F43.12 Post-traumatic stress disorder, chronic; F43.21 Adjustment disorder with depressed mood | CPT/HCPCS: 90792 ==

== ENCOUNTER 2025-03-11 11:30 | Outpatient (RCR) | payer OTHER, SELFPAY ==
[2025-03-03 09:43] VITALS: BMI 42.3
[2025-03-03 09:44] VITALS: BP 132/91; PULSE 102; TEMP 36.8
--- NOTE | 2025-03-03 14:03 | PC.ADMIT ---
Patient is a 44 year old female who initially started PHP on 02/05/25 however was unable to complete the program d/t c/o constipation, bloating, and migraine headache (reports history of migraines) at the time. Patient has decreased Sertraline dose from 150 mg to [address] Lino's instructions. Patient reports she continues to struggle with sxs of depression and panic attacks. Patient reports she is going through relationship issues with her current partner whom she lives with. Feels alone and isolated. She also reports being triggered d/t her husbands passing. Patient reports her struggled with addiction issues and when her family and friends found out they stopped talking to her. Patient reports she is going to be moving. Found a roof leak where she is going to move to. May take longer to get the apartment per patient. At times patient reports her partner wants to work on things then his actions prove differently. Reports communication difficulties with her partner. Patient is alert and oriented x4. She is calm and cooperative. She presented with depressed mood and anxious affect. Regarding SI patient reports she has passive thoughts, Thoughts that not being here will be better. Patient denied any intent or plan to harm self. Patient was given a copy of her safety plan if needed. Medications updated with patient and patient's [facility] medical record. Patient reports she is taking medications as prescribed.
--- NOTE | 2025-03-04 13:58 | HO.PHP ---
This clinician called the patient twice to inform her about an issue with her insurance that was brought up with another Program staff member. The patient didn't respond to the calls and a voice message was left indicating that a discussion will happen tomorrow prior to starting the groups sessions.
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
--- NOTE | 2025-03-05 15:10 | HO.PHP ---
Case was opened and reviewed on teams.
== END 2025-03-11 23:59 | disposition home or self-care (01) ==
LOC: HO.PHPA 11:30
PROVIDERS: Visit Provider Psychiatry & Neurology Psychiatry
DX: F33.2 Major depressive disorder, recurrent severe without psychotic features (principal); F41.1 Generalized anxiety disorder; F43.12 Post-traumatic stress disorder, chronic; F43.21 Adjustment disorder with depressed mood; Z79.899 Other long term (current) drug therapy
CPT/HCPCS: 90791; 90853

== ENCOUNTER 2025-04-28 08:04 | Emergency (ER) | payer OTHER, SELFPAY ==
[2025-04-28 08:06] VITALS: BP 126/90; PULSE 76; RESP 16; TEMP 36.5; O2SAT 100; BMI 32.9
--- NOTE | 2025-04-28 08:08 | ED.GENADULT ---
HPI - General Adult General Chief complaint: Upper Respiratory Symptoms Stated complaint: Sore throat Time Seen by Provider: 04/28/25 08:21 Source: patient and RN notes reviewed Mode of arrival: ambulatory Limitations: no limitations History of Present Illness ED Provider: Juliet Chirinos PA-C HPI narrative: This is a [id number]-female, with a hx of asthma, depression and anxiety, who presents to the ER with sore throat, BL ear pain x 3 days. Patient reports that over the last 3 days she has had a sore throat, bilateral ear pain congestion, and subjective fevers. She has been taking [id number] cold and flu medications which has provided her with minimal relief. Denies any known sick contacts. She denies any abdominal pain, nausea, vomiting or diarrhea. No other complaints or concerns at this time. MD complaint: Sore throat, bilateral ear pain Onset (ago): day(s) Radiation: non-radiation Pain Consistency: constant Relieving factors: none Exacerbating factors: none Associated symptoms: denies other symptoms Treatments prior to arrival: none Related Data Home Medications ?Medication ?Instructions ?Recorded ?Confirmed diclofenac sodium 1 % topical gel See Rx Instructions .Route .COMPLEX 02/10/25 03/03/25 Previous Rx's ?Medication ?Instructions ?Recorded clonidine HCl 0.1 mg tablet 0.2 mg PO BEDTIME #30 tabs 02/12/25 hydroxyzine pamoate 50 mg capsule 50 mg PO BID PRN anxiety #60 caps 02/12/25 lamotrigine 100 mg tablet 100 mg PO BID #60 tabs 02/12/25 sertraline 100 mg tablet 150 mg (1.5 x 100 mg) PO DAILY 30 02/12/25 days #45 tabs aripiprazole 2 mg tablet 2 mg PO BEDTIME as directed #14 03/03/25 tabs acetaminophen 500 mg tablet 1,000 mg (2 x 500 mg) PO Q8H PRN 04/28/25 (Tylenol Extra Strength) fever or pain #30 tabs amoxicillin 500 mg capsule 500 mg PO BID 10 days #20 caps 04/28/25 ibuprofen 600 mg tablet 600 mg PO Q6H PRN fever or pain 04/28/25 #30 tabs Allergies Allergy/AdvReac Type Severity Reaction Status Date / Time oxycodone (OXYCODONE) Allergy Mild HIVES Verified 04/28/25 08:07 bee pollen (bee stings) Allergy Anaphylaxis Verified 04/28/25 08:07 Opioids - Morphine Analogues Allergy Hives Verified 04/28/25 08:07 Opioids-Meperidine and Allergy Hives Verified 04/28/25 08:07 Related Opioids-Methadone and Related Allergy Hives Verified 04/28/25 08:07 Chocolate AdvReac Severe Anaphylaxis Verified 04/28/25 08:07 cocoa AdvReac Severe Anaphylaxis Verified 04/28/25 08:07 Review of Systems Review of Systems: Yes all other systems are reviewed and are negative Constitutional: Constitutional: Reports as per [facility] Past Medical History Medical History (Updated 04/28/25 @ 10:07 by SUSAN Moreira) Migraine History of bronchitis Arthritis Eczema Asthma Sleep apnea Ovarian cyst Kidney stone Surgical History History of cholecystectomy H/O lumpectomy Previous section Social History Social History (Updated 01/27/25 @ 10:17 by DAX Connell) Household Members: Significant Other and Children Household Members Other:: 2 adult children Housing: Apartment Do you presently have visiting nurse or other home services: No Alcohol intake: current Alcohol intake frequency: holidays/special occasions only Patient Tobacco Use Status: Current everyday Tobacco user Tobacco use type: Cigarette Cigarettes Per Day: 4 Years Smoked: 6 Smoked in Last 30 Days: No Second Hand Smoke Exposure: No Use of substances other than those prescribed or required for medical reasons: No Substance Use Type: Marijuana Advance Directives: No Advance Directives Information Provided: Yes Patient : No service: No Current occupational status: employed Current occupation: left hand Sexual orientation: Straight/Heterosexual Physical Exam ED Vital Signs: Vital Signs - 24 hr 04/28/25 08:06 04/28/25 11:01 04/28/25 11:02 Temperature 97.7 F 97.7 F Pulse Rate 76 76 Respiratory Rate 16 16 Blood Pressure 126/90 H 126/90 H Pulse Oximetry 100 99 99 Oxygen Delivery Method Room Air Room Air Room Air BMI result Body Mass Index 32.9 Const General: cooperative, comfortable and no acute distress Orientation/consciousness: patient oriented x3 Limitations: no limitations HENMT Other: Posterior Oral pharynx is erythematous, uvula is edematous and erythematous BL TMs nonerythematous, nonbulging. No trismus, drooling, or dysphonia. She has mild bilateral cervical lymphadenopathy noted. Head: Yes normal to inspection, Yes normocephalic and Yes atraumatic Ears: hearing grossly normal bilaterally and TM's normal bilaterally General nose exam: Normal external nose present Face and sinus: Yes normal facial exam Mouth: Normal oral and palatal mucosa present, oropharynx normal and moist mucous membranes Throat: Yes posterior oropharynx normal Eyes General: appearance normal, both eyes and all related structures Eyelids: Yes eyelids normal Conjunctivae: conjunctivae normal Sclerae: sclerae normal Pupils: Equal, round and reactive pupils present EOM: EOMs intact bilaterally Neck Neck: Yes normal visual inspection, Yes full ROM and Yes no lymphadenopathy Lymphatic: no lymphadenopathy noted Chest Chest palpation & inspection: normal inspection of the chest Resp Effort & Inspection: normal respiratory effort and able to speak in complete sentences Auscultation: clear to auscultation bilaterally, no crackles, no rales, no rhonchi and no wheezes Cardio Rate: regular rate Rhythm: regular rhythm Heart sounds: S1 normal heart sound present and S2 normal heart sound present GI Inspection: Yes normal to inspection Skin General skin exam: no rashes or lesions noted Trauma: no lacerations or abrasions Wounds: no wounds Neuro General: patient oriented x3 and moves all extremities Cranial nerves: Yes Equal, round and reactive pupils present Extrem General: Yes normal to inspection Right upper extremity: normal to inspection Left upper extremity: normal to inspection Right lower extremity: normal to inspection Left lower extremity: normal to inspection Medications Administered Discontinued Medications Generic Name Dose Route Start Last Admin Trade Name Freq PRN Reason Stop Dose Admin Dexamethasone 10 mg 04/28/25 10:11 04/28/25 10:42 Dexamethasone 2 Mg Tablet PO 04/28/25 10:12 10 mg ONCE ONE Administration Medical Decision Making Medical Decision Making MDM Narrative: This is a 44-year-old female who presents emergency department with complaints of sore throat, bilateral ear pain, congestion for the last 2 days. On arrival, vital signs within normal limits. She is speaking full sentences under no acute distress. No trismus, drooling, or dysphonia. Posterior oropharynx is erythematous with edematous and erythematous uvula. TMs are unremarkable. Viral swabs were obtained which were negative. Given appearance of uvula, will treat with course of antibiotics, will also give 1 time dose of Decadron. Patient was given strict return precautions. She understands and agrees with plan. Patient stable for discharge. Differential Diagnosis Differential Diagnoses: The differential diagnosis associated with the presentation includes Pharyngitis, tonsillitis, uvulitis, sinusitis Lab Data MDM Lab Attestation statement: I reviewed the patient's lab results. Negative Labs: Lab Results 04/28/25 Range/Units 08:32 Influenza Type A (PCR) NEGATIVE (Negative) Influenza Type B (PCR) NEGATIVE (Negative) RSV RNA Qual (PCR) NEGATIVE (Negative) SARS-CoV-2 RNA (RT-PCR) NEGATIVE (Negative) S. pyogenes GrpA TOM Negative (Negative) Discharge Plan Discharge Clinical Impression: Uvulitis, Pharyngitis Patient Disposition: Home, Self-Care Instructions: Pharyngitis (ED), Uvulitis (ED) Additional Instructions: You were seen in the emergency department today. Your uvula is inflamed which can be caused by bacterial or a virus. We are starting you on antibiotics, please take as prescribed, finish the entire course even if your symptoms improve. Alternate between ibuprofen and or Tylenol as needed for pain and symptoms. You can take ibuprofen 600 mg every 6 hours, 2 hours later you can take Tylenol 500mg - 1000 mg. Alternate between both of these medications can provide very good relief. Saltwater gargles, tea with honey, popsicles, warm soups can be beneficial. Drink plenty of fluids get plenty of rest. If any new or worsening symptoms occur including but not limited to difficulty swallowing, difficulty breathing, severe chest pain or shortness of breath, please seek emergent care. Prescriptions: New amoxicillin 500 mg capsule 500 mg PO BID 10 Days Qty: 20 0RF ibuprofen 600 mg tablet 600 mg PO Q6H PRN (Reason: fever or pain) Qty: 30 0RF acetaminophen [Tylenol Extra Strength] 500 mg tablet 1,000 mg PO Q8H PRN (Reason: fever or pain) Qty: 30 0RF No Action diclofenac sodium 1 % gel See Rx Instructions .ROUTE .COMPLEX Rx Instructions: Apply to affected area four times a day. sertraline 100 mg tablet 150 mg PO DAILY 30 Days Qty: 45 0RF Rx Instructions: Patient taking 100 mg daily. clonidine HCl 0.1 mg tablet 0.2 mg PO BEDTIME Qty: 30 0RF Protocol: Hold for SBP< HOLD for SBP < : 90 Rx Instructions: Take 2 tabs at bedtime. hydroxyzine pamoate 50 mg capsule 50 mg PO BID PRN (Reason: anxiety) Qty: 60 0RF lamotrigine 100 mg tablet 100 mg PO BID Qty: 60 0RF aripiprazole 2 mg tablet 2 mg PO BEDTIME Qty: 14 0RF Interventions: ED Discharge Assessment Last Done: 04/28/25 11:02 Discharge Date/Time: 04/28/25 11:03 Print Language: French
[2025-04-28 09:21] LABS: Resp Syncy Virus RNA Qual PCR NEGATIVE (Negative); SARS COV2 PCR INHOUSE NEGATIVE (Negative)
[2025-04-28 09:25] LABS: IDNOW Serial# 58CA691E; Strep A Nucleic Acid Negative (Negative)
[2025-04-28 11:01] VITALS: O2SAT 99
[2025-04-28 11:02] VITALS: BP 126/90; PULSE 76; RESP 16; TEMP 36.5; O2SAT 99
== END 2025-04-28 11:03 | disposition home or self-care (01) ==
PROVIDERS: Physician Assistant Medical; Emergency Provider Emergency Medicine
DX: K12.2 Cellulitis and abscess of mouth (principal); J02.9 Acute pharyngitis, unspecified; J45.909 Unspecified asthma, uncomplicated; F41.9 Anxiety disorder, unspecified; H83.8X3 Other specified diseases of inner ear, bilateral
CPT/HCPCS: 87637; 87651; 99283; 99284; J8540

== ENCOUNTER 2025-07-08 22:23 | Emergency (ER) | payer OTHER, SELFPAY ==
--- NOTE | ~2025-07-08 | CT_ITS ---
CLINICAL HISTORY: nephrolithiasis CT abdomen and pelvis without contrast Comparison: CT/SR - CT ABDOMEN PELVIS WITH IV CONTRAST - 08/11/24 20:10 EST Findings: No consolidation or effusion. Cholecystectomy. No biliary duct dilatation. Liver, spleen, pancreas, and adrenal glands are within normal limits. Left parapelvic cysts. No hydronephrosis or urolithiasis. No bowel obstruction, pneumatosis or pneumoperitoneum. Normal appendix. IUD in the endometrial cavity. Urinary bladder is underdistended. The bones are intact. IMPRESSION: 1. No acute intraabdominal or pelvic findings. This document has been electronically signed by: José Miguel Moon MD on 07/09/2025 01:22:23
[2025-07-08 22:58] VITALS: BP 117/90; PULSE 83; RESP 16; TEMP 36.4; O2SAT 97; BMI 42.5
[2025-07-08 23:20] LABS: MANUAL DIFF FLAG NO
[2025-07-08 23:21] LABS: Hematocrit 41.6 % (37.0-47.0); Hemoglobin 13.0 g/dl (12.0-16.0); Imm Gran Abs Auto 0.04 X10*3/uL (0.00-0.03); Imm Gran Pct Auto 0.3 % (0.0-0.4); Lymphocytes Absolute Auto 4.3 X10*3/uL (1.2-4.9); Mean Corpuscular HGB Conc 31.3 g/dl (31.0-35.0); Mean Corpuscular Hemoglobin 22.8 pg (27.0-33.0); Mean Corpuscular Volume 73.0 fL (80.0-98.0); NRBC Abs Auto 0.000 X10*3/uL (0.0-0.012); NRBC Pct Auto 0.0 /100WBC (0.0-0.2); Platelet Count 297 X10*3/uL (160-400); Red Blood Count 5.70 X10*6/uL (4.20-5.50); White Blood Count 11.8 X10*3/uL (4.8-10.8)
[2025-07-08 23:23] LABS: Appearance Urine Clear; Glucose Urine UA Negative (Negative); PH 6.0 (5.0-9.0); Specific Gravity - Urine 1.025 (1.005-1.025); UMIC TRIGGER UACC YES
[2025-07-08 23:24] LABS: UPreg QC Valid YES
[2025-07-08 23:35] LABS: Alanine Aminotransferase 18 U/L (0-31); Albumin Level 4.2 g/dL (3.5-5.0); Alkaline Phosphatase 77 U/L (39-117); Anion Gap 12 (12-20); Aspartate Amino Transferase 22 U/L (5-31); Blood Urea Nitrogen 9 mg/dL (9-16); Calcium 9.1 mg/dL (8.4-10.2); Carbon Dioxide 24 mmol/L (22-29); Chloride 109 mmol/L (96-108); Creatinine Clr Calc Pharmacy 138.6; Estimated Glomerular Filt Rate > 60; Potassium 4.1 mmol/L (3.3-5.1); Sodium 141 mmol/L (135-145); Total Protein 7.5 g/dL (6.5-8.0)
--- NOTE | 2025-07-09 00:33 | ED_ITS ---
HPI - Female Genitourinary General Chief complaint: Urogenital-Female Stated complaint: low back pain, no injury vomiting Time Seen by Provider: 07/09/25 00:25 Source: patient Mode of arrival: ambulatory Limitations: no limitations History of Present Illness ED Provider: Dr. Del Cid HPI Narrative: 44-year-old female presented hospital today for left-sided flank pain. This has been going on for 3 days now. She has endorsed her nausea and vomiting. Patient is complaining of increased urinary frequency as well. She does have history of kidney stones in the past. Related Data Home Medications ?Medication ?Instructions ?Recorded ?Confirmed diclofenac sodium 1 % topical gel See Rx Instructions .Route .COMPLEX 02/10/25 03/03/25 Previous Rx's ?Medication ?Instructions ?Recorded clonidine HCl 0.1 mg tablet 0.2 mg PO BEDTIME #30 tabs 02/12/25 hydroxyzine pamoate 50 mg capsule 50 mg PO BID PRN anx iety #60 caps 02/12/25 lamotrigine 100 mg tablet 100 mg PO BID #60 tabs 02/12 sertraline 100 mg tablet 150 mg (1.5 x 100 mg) PO ELE LY 30 02/12/25 days #45 tabs aripiprazole 2 mg tablet 2 mg PO BEDTIME as directed #14 03/03/25 tabs acetaminophen 500 mg tablet 1,000 mg (2 x 500 mg) PO Q 8H PRN 04/28/25 (Tylenol Extra Strength) fever or pain #30 tabs amoxicillin 500 mg capsule 500 mg PO BID 10 days #20 c aps 04/28/25 ibuprofen 600 mg tablet 600 mg PO Q6H PRN fever or p ain 04/28/25 #30 tabs cefpodoxime 200 mg tablet 200 mg PO Q12H 10 days #20 t abs 07/09/25 cyclobenzaprine 5 mg tablet 5 mg PO TID PRN muscle spa sm #20 07/09/25 tabs ketorolac 10 mg tablet 10 mg PO Q8H PRN pain #30 ta bs 07/09/25 ondansetron HCl 4 mg tablet 4 mg PO Q8H PRN nausea and 07/09/25 vomiting #14 tabs Allergies Allergy/AdvReac Type Severity Reaction Status Date / Time oxycodone (OXYCODONE) Allergy Mild HIVES Verified 07/08/25 23:01 bee pollen (bee stings) Allergy Anaphylaxis Verified 07/08/25 23:01 Opioids - Morphine Analogues Allergy Hives Verified 07/08/25 23:01 Opioids-Meperidine and Allergy Hives Verified 07/08/25 23:01 Related Opioids-Methadone and Related Allergy Hives Verified 07/08/25 23:01 Chocolate AdvReac Severe Anaphylaxis Verified 07/08/25 23:01 cocoa AdvReac Severe Anaphylaxis Verified 07/08/25 23:01 Review of Systems 2 Review of Systems: Pertinent review of systems as mentioned in HPI. All other system otherwise negative. [facility] Past Medical History PENDING SALE TO [facility] Narrative: Nephrolithiasis Medical History (Updated 07/09/25 @ 01:56 by Kirstie Del Cid DO) Migraine History of bronchitis Arthritis Eczema Asthma Sleep apnea Ovarian cyst Kidney stone Surgical History History of cholecystectomy H/O lumpectomy Previous section Social History Social History (Updated 01/27/25 @ 10:17 by DAX Connell) Household Members: Significant Other and Children Household Members Other:: 2 adult children Housing: Apartment Do you presently have visiting nurse or other home services: No Alcohol intake: current Alcohol intake frequency: does not drink Patient Tobacco Use Status: Current everyday Tobacco user Tobacco use type: Cigarette Cigarettes Per Day: 4 Years Smoked: 6 Smoked in Last 30 Days: No Second Hand Smoke Exposure: No Use of substances other than those prescribed or required for medical reasons: No Substance Use Type: Marijuana Advance Directives: No Advance Directives Information Provided: Yes Do you have a plan to hurt others: No Plan service: No Current occupational status: employed Current occupation: left hand Sexual orientation: Straight/Heterosexual Physical Exam 2 Exam: Exam: General: Pleasant, no distress, interacting appropriately Head: Normacephalic, atraumatic ENT: oral mucosa moist, neck supple, no tracheal deviation Cardiovascular: regular rate, regular rhythm, no murmurs, rubbing, gallops Respiratory: CTAB, no wheeze, rales, rhonchi Gastrointestinal: Soft, non distended, left-sided flank pain on exam Skin: Warm and dry Psychiatric: Appropriate mood and thoughts Vital Signs: Vital Signs: Last Vital Signs Temp 97.6 F 07/08/25 22:58 Pulse 83 07/08/25 22:58 Resp 16 07/08/25 22:58 BP 117/90 H 07/08/25 22:58 Pulse Ox 97 07/08/25 22:58 O2 Del Method Room Air 07/08/25 22:58 BMI result Body Mass Index 42.5 Medications Administered Discontinued Medications Generic Name Dose Route Start Last Admin Trade Name Fior PRN Reason Stop Dose Admin Ceftriaxone Sodium 1 gm 07/09/25 00:35 07/09/25 00:46 Ceftriaxone Sodium 1 Gm Vial IVPUSH 07/09/25 00:36 1 gm ONCE ONE Administration Sodium Chloride 1,000 mls @ 999 mls/hr 07/09/25 01:00 07/09/25 01:07 Ns IV 07/09/25 02:00 999 mls/hr .Q1H1M OC Administration Ketorolac Tromethamine 15 mg 07/09/25 00:53 07/09/25 01:07 Ketorolac Tromethamine 15 Mg/Ml Vial IVPUSH 07/09/25 00:54 15 mg ONCE ONE Administration Ondansetron HCl 4 mg 07/09/25 00:53 07/09/25 01:07 Ondansetron Hcl 4 Mg/2 Ml Vial IVPUSH 07/09/25 00:54 4 mg ONCE ONE Administration Medical Decision Making Medical Decision Making [facility] Narrative: 44-year-old female presented hospital today for increased urinary frequency and left-sided flank pain. The patient's UA does show signs of UTI. She does have a slow all leukocytosis 11.8. IV ceftriaxone will be given to the patient. We will plan to give patient some IV fluid, IV Toradol IV Zofran for nausea. Patient's CT imaging was unremarkable no sign of nephrolithiasis. I suspect patient may have some pyelonephritis. We will plan to discharge patient on a course of cefpodoxime. Flexeril will be given for muscle relaxer. Patient is allergic to opioids at this time. Zofran will be prescribed to the patient as well. Patient will be discharged home. Differential Diagnosis Differential Diagnoses: The differential diagnosis associated with the presentation includes Pyelonephritis, UTI, nephrolithiasis, Lab Data [facility] Lab Attestation statement: I reviewed the patient's lab results. 07/08/25 23:14 07/08/25 23:14 Labs: Lab Results 07/08/25 Range/Units 23:14 WBC 11.8 H (4.8-10.8) X10*3/uL RBC 5.70 H (4.20-5.50) X10*6/uL Hgb 13.0 (12.0-16.0) g/dl Hct 41.6 (37.0-47.0) % MCV 73.0 L (80.0-98.0) fL MCH 22.8 L (27.0-33.0) pg MCHC 31.3 (31.0-35.0) g/dl RDW 14.6 (11.0-16.0) % Plt Count 297 (160-400) X10*3/uL MPV 8.8 L (9.4-12.3) fL Immature Gran % (Auto) 0.3 (0.0-0.4) % Neut % (Auto) 53.7 (45-73) % Lymph % (Auto) 36.7 (20-40) % [place] % (Auto) 8.3 (2-11) % Eos % (Auto) 0.7 (0-4) % Baso % (Auto) 0.3 (0-2) % Lymph # (Auto) 4.3 (1.2-4.9) X10*3/uL [place] # (Auto) 1.0 (0.1-1.2) X10*3/uL Eos # (Auto) 0.1 (0.0-0.4) X10*3/uL Baso # (Auto) 0.0 (0.0-0.2) X10*3/uL Abs Immat Gran (auto) 0.04 H (0.00-0.03) X10*3/uL Absolute Neuts (auto) 6.4 (2.0-8.3) x10*3/uL Absolute Nucleated RBC 0.000 (0.0-0.012) X10*3/uL Nucleated RBC % (auto) 0.0 (0.0-0.2) /100WBC Sodium 141 (135-145) mmol/L Potassium 4.1 (3.3-5.1) mmol/L Chloride 109 H (96-108) mmol/L Carbon Dioxide 24 (22-29) mmol/L Anion Gap 12 (12-20) BUN 9 (9-16) mg/dL Creatinine 0.69 (0.5-1.4) mg/dL Estim Creat Clear Calc 138.6 Estimated GFR > 60 Random Glucose 95 (60-115) mg/dL Calcium 9.1 (8.4-10.2) mg/dL Total Bilirubin 0.4 (0.0-1.0) mg/dL AST 22 (5-31) U/L ALT 18 (0-31) U/L Alkaline Phosphatase 77 (39-117) U/L Total Protein 7.5 (6.5-8.0) g/dL Albumin 4.2 (3.5-5.0) g/dL Urine Color Yellow Urine Appearance Clear Urine pH 6.0 (5.0-9.0) Ur Specific [place] 1.025 (1.005-1.025) Urine Protein Trace (Neg-Trace) mg/dL Urine Glucose (UA) Negative (Negative) mg/dL Urine Ketones Trace (Negative) mg/dL Urine Blood Small (1+) H (Negative) Urine Nitrite Negative (Negative) Ur Leukocyte Esterase Trace H (Negative) Urine RBC 11-20 H (0-2) /HPF Urine WBC 0-5 (0-5) /HPF Ur Squamous Epith Cells 3-5 (0-2) /HPF Urine Bacteria 1+ (None Seen) Hyaline Casts 0-2 (0-2) /LPF Urine Test NEGATIVE (NEGATIVE) Independent Interpretation I performed an independent interpretation of an: CT Scan Radiology Impression Discussion of test interpretation with radiology: I have reviewed the radiologist's reading. Prescription Management I considered prescription management with: Antibiotic Discharge Plan Discharge Clinical Impression: Pyelonephritis Patient Disposition: Home, Self-Care Instructions: Kidney Infection (ED) Prescriptions: New cefpodoxime 200 mg tablet 200 mg PO Q12H 10 Days Qty: 20 0RF Rx Instructions: must administer with a meal/food cyclobenzaprine 5 mg tablet 5 mg PO TID PRN (Reason: muscle spasm) Qty: 20 0RF ketorolac 10 mg tablet 10 mg PO Q8H PRN (Reason: pain) Qty: 30 0RF Rx Instructions: maximum total duration of 5 days from all oral, intranasal, or parenteral formulations ondansetron HCl 4 mg tablet 4 mg PO Q8H PRN (Reason: nausea and vomiting) Qty: 14 0RF No Action diclofenac sodium 1 % gel See Rx Instructions .ROUTE .COMPLEX Rx Instructions: Apply to affected area four times a day. sertraline 100 mg tablet 150 mg PO DAILY 30 Days Qty: 45 0RF Rx Instructions: Patient taking 100 mg daily. clonidine HCl 0.1 mg tablet 0.2 mg PO BEDTIME Qty: 30 0RF Protocol: Hold for SBP< HOLD for SBP < : 90 Rx Instructions: Take 2 tabs at bedtime. hydroxyzine pamoate 50 mg capsule 50 mg PO BID PRN (Reason: anxiety) Qty: 60 0RF lamotrigine 100 mg tablet 100 mg PO BID Qty: 60 0RF aripiprazole 2 mg tablet 2 mg PO BEDTIME Qty: 14 0RF amoxicillin 500 mg capsule 500 mg PO BID 10 Days Qty: 20 0RF ibuprofen 600 mg tablet 600 mg PO Q6H PRN (Reason: fever or pain) Qty: 30 0RF acetaminophen [Tylenol Extra Strength] 500 mg tablet 1,000 mg PO Q8H PRN (Reason: fever or pain) Qty: 30 0RF Print Language: [place]
--- NOTE | 2025-07-09 00:49 | PC.NURSE ---
pt medicated per mar.
--- NOTE | 2025-07-09 00:50 | PC.NURSE ---
pt taken to CT Scan, awaiting results.
--- NOTE | 2025-07-09 01:12 | PC.NURSE ---
pt medicated per mar.
[2025-07-09] MEDS: Lidocaine 4 % Patch ADH..PATCH 1 PATCH TRANSDERMA (02:09)
[2025-07-09 02:24] VITALS: BP 117/90; PULSE 83; RESP 16; TEMP 36.4; O2SAT 97
== END 2025-07-09 02:25 | disposition home or self-care (01) ==
PROVIDERS: Emergency Provider Student in an Organized Health Care Education/Training Program
DX: N12 Tubulo-interstitial nephritis, not specified as acute or chronic (principal); M54.50 Low back pain, unspecified; R11.2 Nausea with vomiting, unspecified; Z87.442 Personal history of urinary calculi
CPT/HCPCS: 36415; 74176; 80053; 81001; 81025; 85025; 96361; 96374; 96375; 99284; 99285; J0696; J1885; J2405

== ENCOUNTER → 2025-07-09 00:32 | Outpatient (BNV) | payer MEDICAID, SELFPAY | PROVIDERS: Emergency Provider Student in an Organized Health Care Education/Training Program; Visit Provider Radiology Diagnostic Radiology | DX: N20.0 Calculus of kidney (principal) | CPT/HCPCS: 74176 ==

== ENCOUNTER 2025-07-20 10:26 | Outpatient (REF) | payer OTHER, SELFPAY ==
[2025-07-20 14:18] LABS: Resp Syncy Virus RNA Qual PCR NEGATIVE (Negative); SARS COV2 PCR INHOUSE NEGATIVE (Negative)
== END 2025-07-20 10:27 | disposition home or self-care (01) ==
LOC: HO.LAB 10:26
PROVIDERS: Nurse Practitioner Family; PCP Physician Assistant
DX: J06.9 Acute upper respiratory infection, unspecified (principal); F17.210 Nicotine dependence, cigarettes, uncomplicated
CPT/HCPCS: 87637; 87880; 99212

== ENCOUNTER 2025-07-20 10:26 | Outpatient (AMB) | payer OTHER, SELFPAY ==
--- NOTE | 2025-07-20 10:55 | AM.OFFWIN_ITS ---
Intake Vital Signs 07/20/25 10:56 Height 5 ft 7 in Weight 271 lb BMI 42.4 BP 132/88 Blood Pressure Location Rt brachial Position Sitting Pulse 95 Pulse Source Pulse Oximeter Temp 98.3 F Temp Source Oral Pulse Oximetry (%) 98 Oxygen Delivery Method Room Air Intake Visit Reasons: EP-stuffy nose, cough, rt ear ache, chills Intake Note: pt presents with chest congestion and productive cough, sinus congestion, RT ear pressure, body chills x6 days Patient Tobacco Use Status: Current everyday Tobacco user Allergies oxycodone (OXYCODONE) Allergy (Mild, Verified 07/20/25 10:58) HIVES bee pollen (bee stings) Allergy (Verified 07/20/25 10:58) Anaphylaxis Opioids - Morphine Analogues Allergy (Verified 07/20/25 10:58) Hives Opioids-Meperidine and Related Allergy (Verified 07/20/25 10:58) Hives Opioids-Methadone and Related Allergy (Verified 07/20/25 10:58) Hives Chocolate Adverse Reaction (Severe, Verified 07/20/25 10:58) Anaphylaxis cocoa Adverse Reaction (Severe, Verified 07/20/25 10:58) Anaphylaxis Do you need a note to return to daycare/school/sports/work: No HPI HPI Comments History of Present Illness Details 44 y/o Female patient who presents to [facility] walk in clinic with c/o Body chills, chest/nasal congestion, productive cough, and RT ear pressure and pain for 6 days. She has been taking OTC medications with no relief. Denies any recent Sick contact. Denies Fevers at home but reports Poor appetite. Reports inability to breath through her nose. [facility] Medical History (Updated 07/20/25 @ 11:23 by Natasha Rodas NP) Acute respiratory disease Migraine History of bronchitis Arthritis Eczema Asthma Sleep apnea Ovarian cyst Kidney stone Surgical History History of cholecystectomy H/O lumpectomy Previous section Social History (Updated 01/27/25 @ 10:17 by DAX Connell) Household Members: Significant Other and Children Household Members Other:: 2 adult children Housing: Apartment Do you presently have visiting nurse or other home services: No Alcohol intake: current Alcohol intake frequency: does not drink Patient Tobacco Use Status: Current everyday Tobacco user Tobacco use type: Cigarette Cigarettes Per Day: 4 Years Smoked: 6 Second Hand Smoke Exposure: No Substance Use Type: Marijuana service: No Current occupational status: employed Current occupation: left hand Sexual orientation: Straight/Heterosexual Review of Systems Const All systems reviewed & are unremarkable except as noted in HPI and below Physical Exam Vital Signs: Last Vital Signs Temp 98.3 F 07/20/25 10:56 Pulse 95 07/20/25 10:56 BP 132/88 07/20/25 10:56 Pulse Ox 98 07/20/25 10:56 Oxygen Delivery Method Room Air 07/20/25 10:56 BMI result Body Mass Index 42.4 Const General: no acute distress Nutritional Appearance: obese Orientation/consciousness: patient oriented x3 HEENT Head: Yes normocephalic Ears: external ears normal and TM abnormal with fluid behind the TM bilateral General nose exam: Abnormal mucous membranes and turbinates present erythematous and Nasal discharge present Face and sinus: Yes sinuses nontender Mouth: moist mucous membranes Throat: Yes uvula midline Resp Effort & Inspection: normal respiratory effort and Actively coughing Quality: dry Auscultation: clear to auscultation bilaterally, no crackles, no rales, no rhonchi and no wheezes Cardio Heart sounds: S1 normal heart sound present and S2 normal heart sound present Neuro General: patient oriented x3 Assessment & Plan Assessment & Plan (1) Acute respiratory disease: Code(s): J06.9 - Acute upper respiratory infection, unspecified Plan: Ordered SARs Ordered Z-pack, advised not to take it together with Hydroxyzine. Rest and hydrate well with warm fluids. Orders: Orders SARS-CoV2/FLU/RSV Today J06.9 - Acute upper respiratory infection, unspecified Medications: New oxymetazoline 0.05% (Afrin (oxymetazoline)) 2 sprays intranasal Q12H 22 mL 0RF nasal congestion 3 days J06.9 - Acute upper respiratory infection, unspecified pseudoephedrine HCl ER (Sudafed 12 Hour) 120 mg PO Q12H 20 tabs 0RF J06.9 - Acute upper respiratory infection, unspecified azithromycin DO NOT TAKE HYDROXYZINE TOGETHER WITH AZITHROMYCIN. 500 mg PO DAILY 3 tabs 0RF 3 days J06.9 - Acute upper respiratory infection, unspecified Coding Level of Care Code Est Pt Level 4 (01211) Diagnoses Acute respiratory disease J06.9 Time Spent (min) 20
[2025-07-20 10:56] VITALS: BP 132/88; PULSE 95; TEMP 36.8; O2SAT 98; BMI 42.4
== END 2025-07-20 11:40 | disposition home or self-care (01) ==
PROVIDERS: PCP Physician Assistant; Visit Provider Nurse Practitioner Family
DX: J06.9 Acute upper respiratory infection, unspecified (principal); Z13.9 Encounter for screening, unspecified